=== PATIENT | female | born 1975 | race Caucasian/White ===

== ENCOUNTER 2020-05-26 12:08 | Outpatient (CLI) | payer OTHER, SELFPAY ==
--- NOTE | ~2020-05-26 | MMUS_ITS ---
EXAMINATION: MM diagnostic chelsea BI w floyd, US breast RT limited HISTORY: Palpable right breast abnormality at 3:00. TECHNIQUE: Additional 3-D tomosynthesis images of the breasts were performed and synthetic 2-D images were generated. CAD analysis was submitted and interpreted. High resolution right breast ultrasound was performed. COMPARISON: None FINDINGS: MAMMOGRAPHIC FINDINGS: Breast composed of scattered areas of fibroglandular density. There are subtle nodular densities in t he upper outer quadrant of the right breast which are obscured by fibroglandular tissue. The left johann ast is unremarkable without evidence for malignancy. ULTRASOUND: Right breast ultrasound: There is an enlarged lymph node at 11:00, 11 cm from the nipple with residual fatty hilum measuring 2 .8 cm maximum dimension. There is a 7 mm cyst at 8:00, 8 cm from the nipple. No discrete abnormality is identified at 3:00 in the area of palpable concern. IMPRESSION: 1. No evidence for malignancy in either breast. Benign findings. 2. Routine yearly screening mammogram and regular clinical breast examination are recommended. BI-RADS Category 2: Benign finding(s). Reviewed, dictated and finalized at location A. IMPRESSION: 1. No evidence for malignancy in either breast. Benign findings. 2. Routine yearly screening mammogram and regular clinical breast examination a re recommended. BI-RADS Category 2: Benign finding(s).
== END 2020-05-26 12:09 | disposition home or self-care (01) ==
LOC: ANHIMG 12:13
PROVIDERS: PCP Family Medicine Sports Medicine; Visit Provider Nurse Practitioner
DX: N64.4 Mastodynia (principal)
CPT/HCPCS: 76642; 77062; 77066; G0279

== ENCOUNTER 2020-08-23 10:54 | Outpatient (CLI) | payer OTHER, SELFPAY ==
[2020-08-23 11:21] LABS: Basophils Percent Auto 0.4 % (0.2-1.2); Eosinophils Absolute Auto 0.3 K/mm3 (0-0.3); Eosinophils Percent Auto 3.3 % (0-4.4); Hematocrit 40.3 % (37.0-47.0); Hemoglobin 13.6 g/dL (12.0-15.0); Immature Granulocyte Absolute 0.03 K/mm3 (0.00-0.031); Immature Granulocyte Percent A 0.3 % (0-0.5); Lymphocytes Absolute Auto 2.72 K/mm3 (0.9-3.2); Lymphocytes Percent Auto 26.6 % (18.3-44.2); Mean Corpuscular HGB Conc 33.7 g/dl (32-36); Mean Corpuscular Volume 88.8 fl (80-100); Mean Platelet Volume 9.8 fl (7.4-10.4); Monocytes Absolute Auto 0.7 K/mm3 (0.1-0.6); Monocytes Percent Auto 6.4 % (2.6-8.5); Neutrophils Absolute Auto 6.5 K/mm3 (1.3-6.7); Platelet Count Result 330 k/mm3 (150-375); Red Blood Count 4.54 M/mm3 (4.2-5.4); Red Cell Distribution Width 13.7 % (11.5-14.5); White Blood Count 10.2 K/mm3 (4.5-10.0)
[2020-08-23 11:33] LABS: Anion Gap 7 mmol/L (8-16); Blood Urea Nitrogen 10 mg/dL (7-17); Calcium 8.7 mg/dL (8.4-10.2); Carbon Dioxide 25 mmol/L (22-30); Chloride 107 mmol/L (98-107); Cholesterol 199 mg/dL (0-200); Estimated Glomerular Filt Rate > 60; Glucose 105 mg/dL (65-105); HDL Direct 48 mg/dL; Potassium 3.8 mmol/L (3.4-5.0); Sodium 139 mmol/L (137-145); Triglycerides 285 mg/dL (<150)
[2020-08-23 11:44] LABS: LDL Cholesterol Direct 112 mg/dL
== END 2020-08-23 10:55 | disposition home or self-care (01) ==
PROVIDERS: PCP Family Medicine; Visit Provider Nurse Practitioner Family
DX: B99.9 Unspecified infectious disease (principal); Z13.220 Encounter for screening for lipoid disorders; Z13.29 Encounter for screening for other suspected endocrine disorder; Z13.1 Encounter for screening for diabetes mellitus
CPT/HCPCS: 36415; 80048; 80061; 84443; 85025

== ENCOUNTER 2025-07-14 15:22 | Outpatient (CLI) | payer OTHER, SELFPAY ==
--- OUTSIDE RECORDS SUMMARY | 2025-07-14 15:50 | XMS_ITS | Clinical Summary ---
Author Organization [facility] Address [address] [place] [address] Care Team Providers Care Baseball Inspector And Repairer Name Role Phone Thierno Shabazz MD Primary Care Provider [phone] Source Comments [facility],non-owned Affiliates and Associated Physician Practices is amultiple site organization consisting of ambulatory clinics and hospital sitesin [place], [place], [place] and [place]. This disclosure is being madepursuant to the Care Everywhere program and may not contain all information available regarding this patient. Last updated 18.[facility] Allergies No known active allergies Medications * Be aware that medications may not be up to date on this document. Alwaysverify current medications with the patient. Cetirizine HCl (ZYRTEC PO) Active Fluticasone-Salm eterol (ADVAIR HFA IN) Active norgestimate-eth inyl estradiol (MONONESSA) 0.25-35 MG-MCG tablet Take 1 Tab by mouth once daily Active montelukast (SINGULAIR) 10 MG tablet Take 10 mg by mouth at bedtime Active benzonatate (TESSALON) 200 MG capsuleIndicatio ns:Acute upper respiratory infection Take 1 Cap by mouth 3 times daily as needed for Cough 30 Cap 05/14/2017 Active Social History Tobacco Use Types Packs/Day Years Used Date Smoking Tobacco: Never Assessed Comments Unknown Sex and Gender Information Value Date Recorded Sex Assigned at Not on file Legal Sex Female 8:06 AM CDT Gender Identity Not on file Sexual Orientation Not on file Last Filed Vital Signs Vital Sign Reading Time Taken Comments Blood Pressure 110/72 05/14/2017 8:23 AM CDT Pulse 81 05/14/2017 8:23 AM CDT Temperature 37.1 C (98.8 F) 05/14/2017 8:23 AM CDT Respiratory Rate 16 05/14/2017 8:23 AM CDT Oxygen Saturation - - Inhaled Oxygen Concentration - - Weight 83.9 kg (185 lb) 05/14/2017 8:23 AM CDT Height 165.1 cm (5' 5) 05/14/2017 8:23 AM CDT Body Mass Index 30.79 05/14/2017 8:23 AM CDT Plan of Treatment Health Maintenance Due Date Last Done Comments COLOGUARD (AGES 45-75) - COL ON CA SCREENING 1977 COLON MONITORING 1977 COLONOSCOPY - COLON CA SCREENING 1977 CT COLONOGRAPHY - COLON CA SCREENING 1977 Colorectal Cancer Screening 1977 FIT - COLON CA SCREENING 1977 FLEX SIG - COLON CA SCREENING 1977 LIPID TESTING 1975 MAMMOGRAM 1977 HIV SCREENING 1992 HEPATITIS C SCREENING 05/28/1995 DTAP/TDAP/TD VACCINES (1 - Tdap) 1996 HEPATITIS B VACCINE (1 of 3 - 19+ 3-dose series) 1996 COVID-19 VACCINE (1 - 2023-2 5 season) 2024 DEPRESSION SCREENING 11/25/2024 INFLUENZA VACCINE (#1) 2025 ZOSTER VACCINE (1 of 2) 2027 HIB VACCINE Aged Out No longer eligi ble based on patient's age to complete this topic HPV VACCINE Aged Out No longer eligi ble based on patient's age to complete this topic MENINGOCOCCAL (Group B) VACC INE SHARED DECISION-MAKING Aged Out No longer eligibl e based on patient's age to complete this topic MENINGOCOCCAL GROUPS A/C/Y/W VACCINE Aged Out No longer eligible b ased on patient's age to complete this topic PNEUMOCOCCAL VACCINE Aged Out No long er eligible based on patient's age to complete this topic Care Teams Baseball Inspector And Repairer Relationship Specialty Start Date End Date Thierno Shabazz MD [address] [place] [address] PCP - General Family Medicine 05/14/17
--- OUTSIDE RECORDS SUMMARY | 2025-07-14 15:50 | XMS_ITS | Encounter Summary ---
Author Organization [facility] Address [address] [place] [address] Care Team Providers Care Driver Service Technician Name Role Phone Unknown, Notinfile Primary Care Provider Unavail able Encounter Details Date Type Department Care Team (Late st Contact Info) Description 06/11/2025 Results Follow-Up [facility] Convenient Care at [address] [address] Gail Nath NP [address] [place] [address] [address] [place] [address] XR Knee Left 4 or More Views Social History Tobacco Use Types Packs/Day Years Used Date Smoking Tobacco: Some Days Cigarettes Smokeless Tobacco: Never AUDIT-C Answer Date Recorded Q1: How often do you have a drink containing alc ohol? Monthly or less 08/06/2023 Average Number of Drinks Not on file 023 Frequency of Binge Drinking Not on file 07/26 Personal Safety Answer Date Recorded Have you ever been in or are you currently in a harmful physical or emotional relationship or is someone making you feel afraid or unsafe? Denies 04/03/2025 Comments No Sex and Gender Information Value Date Recorded Sex Assigned at Not on file Legal Sex Female 2:48 AM WEED BURNER Gender Identity Not on file Sexual Orientation Not on file Occupation Industry Job Start Date Job End Date [employer] Not on file Not on file Not on file documented as of this encounter Plan of Treatment Not on file documented as of this encounter Visit Diagnoses Not on filedocumented in this encounter Care Teams Driver Service Technician Relationship Specialty Start Date End Date Unknown, Notinfile PCP - General 06/11/25 documented as of this encounter
--- OUTSIDE RECORDS SUMMARY | 2025-07-14 15:50 | XMS_ITS | Clinical Summary ---
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 Name Role Phone Unknown, Notinfile Primary Care Provider Unavail able Allergies No known active allergies Medications albuterol HFA (PROVENTIL HFA,VENTOLIN HFA,PROAIR HFA) 90 mcg/actuation inhaler INHALE 2 PUFFS BY MOUTH EVERY 4 HOURS NEEDED FOR SHORTNESS OF BREATH OR WHEEZING 1 Active ALPRAZolam (XANAX) 1 mg tablet Take 1 tablet (1 mg total) by mouth daily as needed 1 Active Wixela Inhub 100-50 mcg/dose diskus inhaler 1 puff 2 (two) times a day 1 Active ibuprofen (ADVIL,MOTRIN) 800 mg tablet Take 1 tablet (800 mg total) by mouth every 6 (six) hours as needed for pain Active escitalopram (LEXAPRO) 20 mg tablet Take 0.5 tablets (10 mg total) by mouth daily 4 Active montelukast (SINGULAIR) 10 mg tablet Take 1 tablet (10 mg total) by mouth nightly Active norethindrone-e .estradioL-iron (LOESTIN 24 FE) 1 mg-20 mcg (24)/75 mg (4) per tablet Take 1 tablet by mouth daily Active fluticasone propionate (FLONASE) 50 mcg/actuation nasal spray Administer 1 spray into each nostril daily as needed for rhinitis Active dextromethorpha n-bupropion (Auvelity) 45-105 mg tablet, IR & ER, biphasic 1 tablet daily Ac tive hydrOXYzine (ATARAX) 25 mg tablet Take 1 tablet (25 mg total) by mouth 2 (two) times a day Active norethindrone-e .estradioL-iron (Blisovi Fe 12/14, ,) 1 mg-20 mcg (21)/75 mg (7) per tablet Take 1 tablet by mouth daily Active Active Problems Problem Noted Date Diagnosed Date Toxic effect of acetaminophe n, intentional self-harm, initial encounter 04/03/2025 Assessment & Plan (04/03/2025 4:18 PM CDT): Diphenhydramine overdose Xanax overdose Patient presenting with suicide attempt by ingesting 2 bottles of Tylenol PM, 7 pills of 25 mg hydroxyzine, 3 pills of Xanax, and alcohol at 2100 on 04/02/2025. Acetaminophen level at 2300 was elevated at 108. Poison control recommended starting antidote if Tylenol level elevated. If not, then repeat level in 4 hours. - AST 16, ALT 16, Alk phos 89. VBG 7.40/39/80/24. PT 11.8, INR 1.09. - Salicylates negative, ethanol negative, UDS positive for benzodiazepines and cannabinoids -NAC 150 mg/kg bolus followed by 12.5 mg/kg/hr was given. Acetaminophen was downtrending to 56 at 4 hrs and 6 at 10 hrs. NAC was discontinued Criteria for stopping NAC: -Acetaminophen level <10 mcg/mL -INR <2.0 -Normal ALT/AST or 25-50% decrease from peak level Plan: -For diphenhydramine, monitor for drowsiness, hypertension, prolonged QTC, seizures, anticholinergic responses. - Criteria met for discontinuing NAC -Clinically well appearing Intentional diphenhydramine overdose 04/03/2025 Xanax overdose 04/03/2025 Hypokalemia 04/03/2025 Assessment & Plan (04/03/2025 4:19 PM CDT): Potassium level low, 3.1 - Replacing with 40 mEq of KCl oral Leukocytosis 04/03/2025 Assessment & Plan (04/03/2025 4:20 PM CDT): Likely reactive. No signs or symptoms of infection noted. -Recheck CBC Suicide attempt 04/03/2025 Assessment & Plan (04/03/2025 4:24 PM CDT): First suicidal attempt by ingestion. Positive prior history of suicidal ideation. No previous psychiatric hospitalization. This may be contributed by recent medication changes. Patient reported not being able to take bupropion consistently. She was switched to auvelity (dextromethorphan-bupropion) but due to insurance issues, was unable to fill the prescription for nearly 4 weeks. - Patient is agreeable to voluntary psychiatric hospitalization Plan: -[facility] consult - Psychiatry consult to restart psychiatric medication - Voluntary psychiatric hospitalization -Suicide precautions Anxiety and depression 04/03/2025 Assessment & Plan (04/03/2025 4:26 PM CDT): Panic disorder Prior history of depression, anxiety, and panic disorder. Home medications include escitalopram 10 mg, dextromethorphan-bupropion, p.r.n. hydroxyzine and Xanax. Recent changes in these medications. Plan: -Will defer to psychiatry for medication management Panic disorder 04/03/2025 Chronic constipation 08/06/2023 Chest wall muscle strain, initial encounter 01/24 Muscle spasm 02/20/2023 Bilateral hearing loss 01/30/2021 Assessment & Plan (01/31/2021 8:00 PM AUTOMATION CONTROL TECHNICIAN): Hearing test - call with results Dental caries 01/30/2021 Assessment & Plan (01/31/2021 7:59 PM AUTOMATION CONTROL TECHNICIAN): Doxycycline for dental infection, follow up with Dentist at the end of the antibiotics Referred otalgia of both ears 01/30/2021 Assessment & Plan (01/31/2021 8:00 PM AUTOMATION CONTROL TECHNICIAN): Doxycycline for dental infection, follow up with Dentist at the end of the antibiotics Encounters Date Type Department Care Team Description 06/11/2025 12:00 PM CDT Office Visit [facility] at [address] [phone] Gail Nath NP Posterior left knee pain (Primary Dx) 06/11/2025 11:40 AM CDT Ancillary Procedure [facility] Imaging at [address] [phone] Posterior right knee pain 06/11/2025 Results Follow-Up [facility] at [address] [phone] Gail Nath NP XR Knee Left 4 or More Views from Last 3 Months Immunizations Immunization Administration Dates Next Due Tdap 09/12/2022 Surgical History Surgery Date Site/Laterality Comments HERNIA REPAIR 11/25/2015 - 11/24/2016 TONSILLECTOMY 11/25/1981 - 11/24/1982 Medical History Medical History Date Comments Anxiety Depression Scoliosis Degenerative disc disease, lumbar Migraines Seasonal allergies Family History Medical History Relation Name Comments Suicide Completion Father Marybeth-Danlos syndrome Father's Sister Asthma Maternal Grandmother Breast cancer Maternal Grandmother Diabetes Maternal Grandmother COPD Mother Heart failure Mother Hypertension Mother Marybeth-Danlos syndrome Paternal Grandfather Marybeth-Danlos syndrome Paternal cousin 1 Marybeth-Danlos syndrome Paternal cousin 2 Relation Name Status Comments Father Father's Sister Maternal Grandfather Maternal Grandmother Mother Paternal Grandfather Paternal Grandmother Paternal cousin 1 Paternal cousin 2 Social History Tobacco Use Types Packs/Day Years Used Date Smoking Tobacco: Some Days Cigarettes Smokeless Tobacco: Never Tobacco Cessation:Ready to Q uit: Not Asked; Counseling Given: Not Answered AUDIT-C Answer Date Recorded Q1: How often [...] on file Legal Sex Female 2:48 AM AUTOMATION CONTROL TECHNICIAN Gender Identity Not on file Sexual Orientation Not on file Occupation Industry Job Start Date Job End Date [employer] Not on file Not on file Not on file Obstetrics History Para Term AB IAB SAB Ectopic Multiple Livin g Live Births 1 1 1 1 1 Date Outcome GA Total Labor Labor/2nd/3rd Weight Sex Type Anes PTL Elida A1 A5 Name Clin 05/11 Term 38w 4d 3.771 kg (8 lb 5 oz) M Vaginal Living Complications:None Last Filed Vital Signs Vital Sign Reading Time Taken Comments Blood Pressure 143/90 06/11/2025 11:24 AM CDT Pulse 68 06/11/2025 11:24 AM CDT Temperature 36.7 C (98 F) 06/11/2025 11:24 AM CDT Respiratory Rate 18 06/11/2025 11:2 4 AM CDT Oxygen Saturation 98% 06/11/2025 11: 24 AM CDT Inhaled Oxygen Concentration - - Weight 104.8 kg (231 lb 1.6 oz) 025 11:24 AM CDT Height 165.1 cm (5' 5) 06/11/2025 11:2 4 AM CDT Body Mass Index 38.46 06/11/2025 11:24 AM CDT Plan of Treatment Health Maintenance Due Date Last Done Comments Colon Cancer Screening-Colonoscopy 1977 Depression Screening 1977 Hepatitis C Screening 1977 Hepatitis B Screening 1995 Pneumococcal vaccine <65 (1 of 2 - PCV) 1996 Covid-19 Vaccine ( season) 2024 09/06/2021, 12/02/2020, 11/11/2020 Breast Cancer Screening-Mammogram 09/25/2024 023 Cervical Cancer Screening 09/25/2024 09/25/2023, 11/2022 Regular Well Visit/Exam 18-64 09/25/2024 09/25/2023 Influenza Vaccine (#1) 2025 DTaP/Tdap/Td Vaccine (4 - Td or Tdap) 09/12/2032 09/12/2022, 03/01/2016, 08/26/2007 Procedures Procedure Name Priority Date/Time Associated Diagnosis Comments XR KNEE LEFT 4 OR MORE VIEWS Schedule NICOLE, Read NICOLE (Appt Today, Awaiting Results) 06/11/2025 11:46 AM CDT Posterior right knee pain SCREENING MAMMOGRAM BILATERAL W VERITO Schedule Routine, Read Routine (OP Routine) 09/25/2023 12:05 PM CDT Encounter for screening mammogram for malignant neoplasm of breast HIGH RISK HPV DNA DETECTION WITH GENOTYPING Routine 09/25/2023 11:33 AM CDT Screening for malignant neoplasm of cervix from Last 3 Months or Most Recently Relevant to Health Maintenance Results * XR Knee Left 4 or More Views (06/11/2025 11:46 AM CDT) Anatomical Region Laterality Modality Lower Extremities, Knee Left Digital Radiography 06/11/2025 1:26 PM CDT Narrative 06/11/2025 1:26 PM CDT EXAM DESCRIPTION: XR KNEE LEFT 4 OR MORE VIEWS REASON FOR STUDY: Knee pain, initial exam, posterior left, anterior medial Pt complains of generalized knee pain after her knee locked up and twisted on the may. TECHNIQUE: There are 4 radiographic view(s) of the left knee . COMPARISON: No prior FINDINGS: Normal mineralization. No acute fracture or dislocation. Mild joint space narrowing medial compartment. Trivial osteophyte formation superior posterior patella. Mild joint effusion. IMPRESSION: 1. No acute fracture. 2. Mild osteoarthritis medial compartment and trivial of the patellofemoral joint. 3. Mild joint effusion. THIS IS AN ELECTRONICALLY VERIFIED FINAL REPORT 06/11/2025 1:26 PM - Electronically signed by Hero Frankel M.D. MJ T: Report ID: [id number] Reading Location: [id number] Procedure Note Hero Frankel MD - 06/11/2025 EXAM DESCRIPTION: XR KNEE LEFT 4 OR MORE VIEWS REASON FOR STUDY: Knee pain, initial exam, posterior left, anterior medial Pt complains of generalized knee pain after her knee locked up and twistedon the may. TECHNIQUE: There are 4 radiographic view(s) of the left knee . COMPARISON: No prior FINDINGS: Normal mineralization. No acute fracture or dislocation. Mild joint space narrowing medial compartment. Trivial osteophyte formation superior posterior patella. Mild joint effusion. IMPRESSION: 1. No acute fracture. 2. Mild osteoarthritis medial compartment and trivial of thepatellofemoral joint. 3. Mild joint effusion. THIS IS AN ELECTRONICALLY VERIFIED FINAL REPORT 06/11/2025 1:26 PM - Electronically signed by Hero Frankel M.D. MJ T: Report ID: [id number] Reading Location: [place] [id number] Gail Nath NP IMG XR PROCEDURES Final Re sult * Screening Mammogram Bilateral W Verito (09/25/2023 12:05 PM CDT) Anatomical Region Laterality Modality Breast Bilateral Mammography Narrative 10/03/2023 5:20 PM AUTOMATION CONTROL TECHNICIAN BILATERAL DIGITAL MAMMOGRAPHY with tomography The present examination has been compared to prior imaging study dated 05/26/2020. Mammography Findings CAD (computer-aided detection) software was utilized. The breasts are heterogeneously dense. This may lower the sensitivity of mammography. No masses, significant calcifications or other abnormalities are seen. Impression There is no mammographic evidence of malignancy. Screening mammogram in 1 year is recommended. BI-RADS Category 1: Negative PATIENT LETTER SENT Gay Gonzalez DO IMG MAMMO PROCEDURES Fi nal Result * (ABNORMAL) High Risk HPV DNA Detection with Genotyping (Molecular component) (09/25/2023 11:33 AM CDT) HPV HR 16 Not Detected Not Detected KANE Comment:Testing performed by : [facility], [address] [facility] [place]., [address] HPV HR 18 Not Detected Not Detected KANE Comment:Testing performed by : [facility], [address] [facility] [place]., [address] HPV HR Non 16/18 Detected(A) Not Detected KANE Comment: Interpretive Data Nucleic acid amplification for detection of high-risk Human Papilloma virus (HPV) is performed by the Maria G Mary 6800 HPV test. This assay specifically detects HPV-16 and HPV-18 genotypes. The following HPV genotypes are detected as high-risk HPV: HPV-31, 33, 35, ,39, 45, 51, 52, 56, 58, 59, 66, and 68. This assay has been approved by the [place] Food and Drug Administration for detection of HPV in cervical specimens collected by a physician using an endocervical brush/spatula or cervical broom and placed in the ThinPrep Pap Test PreservCyt collection containers. The performance characteristics of this test have been verified by the [facility] Molecular Infectious Disease laboratory. Correlate with separately reported cytology results, as applicable. Interpretive data last revised 23 Testing performed by: [facility], [address] [place]., [address] Endocervical 09/25/2023 11:3 3 AM CDT 09/26/2023 12:38 PM CDT [facility] KANE SCANLON - 09/27/2023 5:23 AM CDT Clinical history and diagnosis->Liquid-based PAP test with high risk HPV test- Z12.4 Number of vials->1 Testing type->Screening Last menstrual period (date if known)->09/15/23 Gay Gonzalez DO LAB BODY FLUIDS AND STO OLS ORDERABLES Final Result Performing Organization Address City/State/[facility] Co de Phone Number [facility] [address] [address] Department of Laboratories [place], [place] [id number] from Last 3 Months or Most Recently Relevant to Health Maintenance Insurance [facility] IDPA IDPA [facility] Advance Directives For more information, please contact: [phone] * Full Code (Latest Code Status on File) Date Activated Date Inactivated Comments 04/03/2025 6:31 PM 04/03/2025 11:17 PM Care Teams Crimping Machine Operator Relationship Specialty Start Date End Date Unknown, Notinfile PCP - General 06/11/25
[2025-07-14 16:40] LABS: Thyroid Stimulating Hormone Reflex 1.240 uIU/mL (0.465-4.68)
[2025-07-15 07:09] LABS: FSH 8.7 mIU/mL (.)
[2025-07-20 23:07] LABS: Estradiol, Sensitive 276.3 pg/mL (.)
== END 2025-07-14 15:23 | disposition home or self-care (01) ==
PROVIDERS: PCP Nurse Practitioner Family; Visit Provider Student in an Organized Health Care Education/Training Program
DX: N95.1 Menopausal and female climacteric states (principal)
CPT/HCPCS: 36415; 82670; 83001; 84443

== ENCOUNTER 2025-09-30 18:25 | Emergency (ER) | payer OTHER, SELFPAY ==
--- OUTSIDE RECORDS SUMMARY | 2016-07-23 07:00 | XMS_ITS | Continuity of Care Document ---
Author Organization [facility] Address [address] [place] [address] Phone Care Team Providers Care Regional Agronomist Name Role Phone Sacha Michel MD Unavailable Unavailable Allergies, Adverse Reactions, Alerts Substance Reaction Status Criticality No Known Allergies Active No Inform ation Medications Medication Instructions Dosage Effective Dates (start - stop) Status Comments SINGULAIR (unknown strength) Not Available - Active Advair Diskus 100 mcg-50 mcg/dose powder for inhalation inhale 1 puff by inhalation route 2 times every day in the morning and evening approximately 12 hours apart 1.00 puff - Active Control BUCCAL CAP DS PK - Active Procedures Procedure Date SCODI, Retina Office/outpatient Visit, [facility] Advance Directives Directive Yes / No Effective Date File Name No Information Encounters Encounter Description Practice Location Reason(s) For Visit Diagnoses Date Provider Providers Copied on Encounter Office/outpat ient Visit, [facility], [address], [place], [place], [id number], [place] tel:[phone] [address] [place] Professional Blurry vision OS (chief complaint) Central serous chorioreti nopathy, left 6 Marilu Goncalves. [address] [facility], [address], [place], [place], [address], [place]. tel:[phone] Family History Family Member Type Diagnosis Age At Onset Problem (finding) Family history of Diabe nataliya mellitus Problem (finding) Family history of glauc alton Payers Payer name Insurance type Covered republican ID Authoriza timeli(s) [facility] [id number] Social History Type Description Quantity Date Captured Comments Alcohol Use Details Unknown Caffeine Use Details Unknown Tobacco Use Status No Information Smoking Status No Information Sex Female Chief Complaint And Reason For Visit From encounter dated '07/23/2016 13:00'. Blurry vision OS (chief complaint). Description: The 41 year old female presents for Blurry vision OS. Pt states last week she noticed a sharp pain in the nasally along with blurred vision and distortion. Pt states on Saturday she noticed her depth perception seemed off because she was parking crooked as well as when walking, she would bump into things. Pt reports the pain has since moved to the rest of OS. She reports to using a cold compress and resting OS. She states her last eye exam was 2+ years ago. Pt denies flashes, reports occasional floaters. Reason For Referral Reason For Referral No Information History Of Present Illness Encounter Date Complaint History Of Prese nt Illness Blurry vision OS The 41 year old female presents for Blurry vision OS. Pt states last week she noticed a sharp pain in the nasally along with blurred vision and distortion. Pt states on Saturday she noticed her depth perception seemed off because she was parking crooked as well as when walking, she would bump into things. Pt reports the pain has since moved to the rest of OS. She reports to using a cold compress and resting OS. She states her last eye exam was 2+ years ago. Pt denies flashes, reports occasional floaters. Functional Status Date Functional Assessmen t No Information Instructions Date Instruction Additional Infor kimmie Impression/Plan - Di scussed diagnosis in detail with patient. Patient understands will resolve on it's own. OCT mac performed today. Will continue to monitor. Amsler grid normal in both eyes, patient reports no diplopia. Patient states she has bumped into the wall a few times. Pt states vision disturbances are worse in sunlight. Patient states when OD is closed vision still looks distorted. Patient aware she has risk factors for pigmentary glaucoma. Instructed patient to return to clinic if distortion continues for additional testing or with any new problems. Jun- Central serous chori oretinopathy, left - Educational material given Related to Central serous chorioretinopathy, left Follow up - as needed Assessments Type Assessment Date assessment Central serous chorioretinopathy , left Patient Care Teams Name Effective Dates (start - stop) Status Members No Information
--- OUTSIDE RECORDS SUMMARY | 2016-07-23 07:00 | XMS_ITS | Continuity of Care Document ---
Author Organization [facility] Address [address] [place] [address] Phone Care Team Providers Care Blow Molder Name Role Phone Sacha Michel MD Unavailable [...] Procedures Procedure Date SCODI, Retina Office/outpatient Visit, [facility] Advance Directives Directive Yes / No Effective Date File Name No Information Encounters Encounter Description Practice Location Reason(s) For Visit Diagnoses Date Provider Providers Copied on Encounter Office/outpat ient Visit, [facility], [address], [place], [place], [id number], [place] tel:[phone] [address] [place] Professional Blurry vision OS (chief complaint) Central serous chorioreti nopathy, left 6 Marilu Goncalves. [address] [facility], [address], [place], [place], [id number], [place]. tel:[phone] Family History Family Member Type Diagnosis Age At Onset Problem (finding) Family history of Diabe nataliya mellitus Problem (finding) Family history of glauc alton Payers Payer name Insurance type Covered green party ID Authoriza timeli(s) [facility] [id number] Social History Type Description Quantity Date Captured [...]
--- OUTSIDE RECORDS SUMMARY | 2025-03-01 10:00 | XMS_ITS ---
Author Organization [facility] [facility] Address [facility] [place] [address] Care Team Providers Care Corporate Lawyer Name Role Phone Alec BETANCOURT, Martir Primary Care Provider Dion Meraz Unavailable [phone] REASON FOR VISIT Follow Up Social History Sex Assigned At : Social History Observation Description Sex Assigned At Female Encounters Encounter Location Date Provider Diagnosis [facility] I Do Venues [place] [id number] [facility] [address] [place] [address] 03/01/2025 Dion Pendleton Plan Of Treatment No Information Progress Notes * ALKAROLDOB: [birth year] (50 yo F)Acc No.[id number]:03/01/2025 Patient: KAROL BENNETT Provider: JAVY MEDINA :1975 A ge:49 Y S ex:Female Date:03/01/2025 [facility] Pcp:Martir Michael MD Subjective: * Chief Complaints: * F ollow Up Billing Information: * Procedure Codes: * Electronic signature of JAVY Hebert on 09/30/2025 at 09:14 PM FRAUD PREVENTION ANALYST Sign off status: Pending * Provider: JAVY MEDINA Date: 0 03/01/2025 Generated for Printi ng/Faxing/eTransmitting on: 1 11/30/2024 09:14 PM FRAUD PREVENTION ANALYST
--- OUTSIDE RECORDS SUMMARY | 2025-07-02 07:45 | XMS_ITS ---
Author Organization [facility] [employer] [facility] Address [address] [place] [address] Care Team Providers Care Orthopedic Technician Name Role Phone Alec BETANCOURT, Martir Primary Care Provider UnavailDion Cronin Unavailable [phone] Kip Whitaker Unavailable [phone] REASON FOR VISIT New Patient (Last seen by Dion on 04/18/2025) Medications Medication SIG (Take, Route, Frequency, Duration) Notes Start Date End Date Status Propranolol HCl 10 MG Tablet 1 tablet Orally twice a day; Duration: 90 days 04/22/2025 Unknown Escitalopram Oxalate 5 MG Tablet 1 tablet Orally Once a day; Duration: 14 days 06/29/2025 Unknown Naproxen 500 MG Tablet Oral 04/10/2024 Unknown Pantoprazole Sodium 40 MG Tablet Delayed Release Oral 04/10/2024 Unknown BLISOVI FE 1 mg-20 mcg (21)/75 mg (7) Tablet Oral *Reorder from [facility] for eRx and Interaction Alerts* 04/10/2024 Unknown Escitalopram Oxalate 10 MG Tablet 0.5 tablet Oral Once a day; Duration: 7 days Unknown hydrOXYzine HCl 25 MG Tablet Oral 04/10/2024 Unknown Montelukast Sodium 10 MG Tablet Oral 04/10/2024 Unknown Auvelity 45-105 MG Tablet Extended Release 1 tablet Orally twice a day; Duration: 90 days Unknown ProAir HFA 108 (90 Base) MCG/ACT Aerosol Solution Inhalation 04/10/2024 Unknown Escitalopram Oxalate 10 MG Tablet 1 tablet Orally Once a day; Duration: 30 days 06/29/2025 Unknown ALPRAZolam 1 MG Tablet 1 tablet Orally daily; Duration: 30 days As needed 04/27/2025 Unknown Social History Sex Assigned At : Social History Observation Description Sex Assigned At Female Social History Additional Details Category Social Info Options Details Migrated Social History Migrated Social History Alcohol Intake: Occasional 03/06/2024,Tobacco Years: Patient refused 03/06/2024 Vital Signs Height 64.00 in 07/02/2025 Height-cm 162.56 cm 07/02/2025 Encounters Encounter Location Date Provider Diagnosis [facility], [place] [address] [address] 07/02/2025 Kip Whitaker Plan Of Treatment No Information Progress Notes * ALKAROLDOB: [birth year] (50 yo F)Acc No.[id number]:07/02/2025 Patient: KAROL BENNETT Provider: BENITEZ CastroHNP :1975 A ge:50 Y S ex:Female Date:07/02/2025 Address:[address] [place], [place] [address] Pcp:Martir Michael MD Subjective: * Chief Complaints: * N ew Patient (Last seen by Dion on 04/18/2025) * Medical History: Problems: Generalized anxiety disorder Moderate recurrent major depression Panic disorder , Imported from Highlights: On April 02, 2025, the patient visited the emergency department at [facility], where they were seen by Dr. Mandi Akhtar. The patient presented with unspecified depression and had attempted suicide. This was also accompanied by a toxic effect due to intentional self-harm with acetaminophen. Following the emergency visit, the patient had a hospital encounter on April 03, 2025. The records do not specify the physician who attended to the patient during this hospital encounter. * Surgical History: Other 03/04/2016 * Social History: M igrated Social History: M igrated Social History: Alcohol Intake: Occasional 03/06/2024,Tobacco Years: Patient refused 03/06/2024. * Medications: U nknownEscitalopram Oxalate 10 MG Tablet 0.5 tablet Oral Once a day Auvelity 45- 105 MG Tablet Extended Release 1 tablet Orally twice a day ProAir HFA 108 (90 Base) MCG/ACT Aerosol Solution Inhalation hydrOXYzine HCl 25 MG Tablet Oral Montelukast Sodium 10 MG Tablet Oral BLISOVI FE 1 mg-20 mcg (21)/75 mg (7) Tablet Oral , Notes to Pharmacist: *Reorder from [facility] for eRx and Interaction Alerts*Naproxen 500 MG Tablet Oral Pantoprazole Sodium 40 MG Tablet Delayed Release Oral Propranolol HCl 10 MG Tablet 1 tablet Orally twice a day Escitalopram Oxalate 5 MG Tablet 1 tablet Orally Once a day Escitalopram Oxalate 10 MG Tablet 1 tablet Orally Once a day ALPRAZolam 1 MG Tablet 1 tablet Orally daily As neededUnknown Escitalopram Oxalate 10 MG Tablet 0.5 tablet Oral Once a day Unknown Auvelity 45-105 MG Tablet Extended Release 1 tablet Orally twice a day Unknown ProAir HFA 108 (90 Base) MCG/ACT Aerosol Solution Inhalation Unknown hydrOXYzine HCl 25 MG Tablet Oral Unknown Montelukast Sodium 10 MG Tablet Oral Unknown BLISOVI FE 1 mg-20 mcg (21)/75 mg (7) Tablet Oral , Notes to Pharmacist: *Reorder from [facility] for eRx and Interaction Alerts*Unknown Naproxen 500 MG Tablet Oral Unknown Pantoprazole Sodium 40 MG Tablet Delayed Release Oral Unknown Propranolol HCl 10 MG Tablet 1 tablet Orally twice a day Unknown Escitalopram Oxalate 5 MG Tablet 1 tablet Orally Once a day Unknown Escitalopram Oxalate 10 MG Tablet 1 tablet Orally Once a day Unknown ALPRAZolam 1 MG Tablet 1 tablet Orally daily As needed Objective: * Vitals: H t: 64.00 in, Ht-cm: 162.56 cm. Billing Information: * Procedure Codes: * Electronic signature of JAVY Sainz on 09/30/2025 at 09:14 PM BOAT CANVAS MAKER INSTALLER Sign off status: Pending * Provider: JAVY Castro Date: 0 07/02/2025 Generated for Hossein levi/Pily/Ruddy on: 11/30/2024 09:14 PM BOAT CANVAS MAKER INSTALLER
[2025-09-30 18:32] VITALS: BP 186/107; PULSE 79; RESP 18; TEMP 36.1; O2SAT 99
[2025-09-30] MEDS: cefTRIAXone 500 MG, LIDOCAINE 1% LOCAL INJ 1 ML IM (18:59)
--- NOTE | 2025-09-30 19:04 | ED.FEMALEGU ---
HPI - Female Genitourinary General Chief complaint: Urogenital-Female Stated complaint: STD Test Time Seen by Provider: 09/30/25 18:43 Source: patient and RN notes reviewed Mode of arrival: ambulatory Limitations: no limitations History of Present Illness HPI Narrative: 50-year-old female patient presents today requesting STI testing. States her significant other told her today that he is having penile discharge over the past few days. Patient denies any symptoms at this time, but would like to be tested. States she only has the one partner right now. Related Data Home Medications ?Medication ?Instructions ?Recorded ?Confirmed ?Last Taken ?Type alprazolam 1 mg tablet 1 mg PO TID PRN 07/25/20 08/26/25 Unknown History cetirizine 10 mg tablet (Zyrtec) 10 mg PO DAILY 07/25/20 08/26/25 Unknown History escitalopram oxalate 10 mg tablet 20 mg PO 07/14/25 08/26/25 Unknown History escitalopram oxalate 20 mg tablet mg 09/30/25 Unknown History Allergies Allergy/AdvReac Type Severity Reaction Status Date / Time kiwi Allergy Mild MOUTH Verified 09/30/25 18:26 ITCHING, ABD PAIN PMFSH Past Medical History Medical History History of scoliosis BMI 40.0-44.9, adult Encounter for other specified surgical aftercare Periumbilical abdominal pain Ventral hernia without obstruction or gangrene Surgical History Surgical History Hx of tonsillectomy H/O hernia repair Family History Family History Father Family history of suicide, Onset Age: 38 Mother Hypertension Family history of chronic obstructive pulmonary disease Family history of congestive heart failure Sibling No problems noted. Grandparent Breast cancer Other Diabetes mellitus Family history of cardiovascular disease Family history of malignant neoplasm Social History Social History Second hand tobacco smoke exposure: No Smoking end date: 11/25/11 Alcohol intake: current Substance use: never Substance use type: does not use Living arrangements: with family Occupation/Education: unemployed Gender identity (if verbalized by the patient): Female Sexual Orientation (if Verbalized by the Patient): Straight or Heterosexual Comments At time of signature, I have reviewed and agree with nursing past medical, surgical, social and family history unless otherwise noted. Please see nursing chart for further information. There is no relevant family history pertinent to the presenting complaint Exam Narrative: GENERAL: Well-appearing, well-nourished, tearful. HEAD: Normocephalic, atraumatic. EYES: EOMI. No redness or drainage. Conjunctivae normal. ENT: Mucous membranes pink and moist. NECK: Normal AROM. CHEST: No respiratory distress. EXTREMITIES: Normal range of motion. No edema. SKIN: Warm, dry, no rash. Capillary refill normal. Normal skin turgor. NEURO: No focal deficits. Alert and oriented x3. Gait steady. PSYCH: Normal affect. No signs of depression or anxiety. Course Course Level of Care: Express Care Visit Vital Signs Vital signs: Vital Signs Temperature 97.0 F L 09/30/25 18:32 Pulse Rate 79 09/30/25 18:32 Respiratory Rate 18 09/30/25 18:32 Blood Pressure 186/107 H 09/30/25 18:32 Pulse Oximetry 99 09/30/25 18:32 Oxygen Delivery Room Air 09/30/25 18:32 Temperature 97.0 F L 09/30/25 18:32 Pulse Rate 79 09/30/25 18:32 Respiratory Rate 18 09/30/25 18:32 Blood Pressure 149/92 H 09/30/25 19:11 Pulse Oximetry 99 09/30/25 18:32 Oxygen Delivery Room Air 09/30/25 18:32 Reviewed. Recheck of blood pressure is 149/92. MDM - Female Genitourinary MDM Narrative Medical decision making narrative: 50-year-old female patient presents today requesting STI testing. States her significant other told her today that he is having penile discharge over the past few days. Patient denies any symptoms at this time, but would like to be tested. States she only has the one partner right now. Physical exam normal. VSS. Recommend patient have a more comprehensive set of testing, states she will go to her OB for follow up. Prescription for doxycycline and flagyl sent to pharmacy. Patient received IM dose of Rocephin to cover for gonorrhea. Patient agrees with plan. Anticipatory guidance given. Differential Diagnosis Differential diagnosis: Likely other (Gonorrhea, chlamydia, Trichomonas) Critical Care Time Critical Care Time Critical Care Time: No Discharge Plan Discharge Clinical Impression: Encounter for screening examination for sexually transmitted disease Patient Disposition: Home Condition: Stable Instructions: Antibiotic Form, Chlamydia (ED), Gonorrhea (ED) Additional Instructions: Your urine sample has been sent off to test for gonorrhea, chlamydia, and trichomonas infections. These tests can take 24-48 hours to come back. You will be notified by telephone if any of your results. You have been treated with Rocephin in urgent care today to cover you for gonorrhea. Prescriptions for Flagyl and doxycycline have been sent to your pharmacy to cover you for trichomonas and chlamydia. If any of your tests come back positive you should need no further treatment. If any of your test come back positive, you will need to notify any partners that you have, and they will need to be tested and treated. Patient Language: Azeri Prescriptions: New doxycycline hyclate 100 mg tablet 100 mg PO BID 7 Days Qty: 14 0RF metronidazole 500 mg tablet 500 mg PO BID 7 Days Qty: 14 0RF No Action escitalopram oxalate 20 mg tablet alprazolam 1 mg tablet 1 mg PO TID PRN cetirizine [Zyrtec] 10 mg tablet 10 mg PO DAILY valacyclovir [Valtrex] 1 gram tablet 1,000 mg PO BID PRN (Reason: cold sores) Qty: 7 0RF escitalopram oxalate 10 mg tablet 20 mg PO levonorgestrel-ethinyl estrad 0.15 mg-30 mcg (91) tablets,dose pack,3 month 1 tablet PO DAILY Qty: 273 3RF fluticasone propion-salmeterol [Advair Diskus] 100-50 mcg/dose blister with device 1 inh INHALATION Q12H Qty: 180 2RF montelukast [Singulair] 10 mg tablet 10 mg PO DAILY Qty: 30 2RF Follow-up/Referrals: Ebony,Antoinette Ascencio APN [Primary Care Provider, Unknown] Stand Alone Forms: Work/School Release IP Time of Disposition: 18:57
[2025-09-30 19:11] VITALS: BP 149/92
--- OUTSIDE RECORDS SUMMARY | 2025-09-30 21:15 | XMS_ITS | Data Portability ---
Author Organization [facility] Address [address] [place] [address] Care Team Providers Care Medical Health Researcher Name Role Phone AMAYAANTOINETTE Primary Care Provider Assessment No assessment recorded. Plan of Treatment Reminders Order Date Submit Date Provider Last Modified By Organization Details Last Modified Time Details Appointments NEW PATIENT 60 2024 09:00A Aristeo Rosa NP Not available Not available Not available Lab respira tory allerge n panel - [facility] c 2024 025 [facility], [address] [facility] [address], [place], [address], 07/28/2025 10:36:53 food allerge n panel, serum 2024 025 [facility], [address] [facility], [facility], [place], [address], 07/28/2025 10:36:54 TSH, ultra-s ensitiv e, serum 2024 025 [facility], [address], [place], [address], 07/28/2025 10:36:52 CMP, serum or plasma 2024 025 [facility], [address], [place], [address], 07/28/2025 10:36:51 lipid panel, serum 2024 025 BINFORD [facility], [address], [place], [address], 07/28/2025 10:36:49 CBC 2024 025 [facility], [address], [place], [address], 07/28/2025 10:36:56 Referral dermato logist referra l 2024 025 oneyda Griffith MD (Dermatology) , [address] [address], [place], [address], 09/14/2025 10:05:45 psychia trist referra l 2024 025 [email or web address], [address], [place], [address], 07/29/2025 11:26:[address] referra l 2024 025 [facility], [address], [place], [address], 08/11/2025 09:29:52 Procedures None recorde d. Surgeries None recorde d. Imaging None recorde d. Medication Orders propran olol 20 mg tablet 2024 025 [facility][id number], [address] , [place], [place], [id number], 08/26/2025 10:07:26 Nurtec ODT 75 mg disinte grating tablet [email or web address] [facility]46376, [address] , [place], [place], [id number], 08/26/2025 10:07:24 Tuberso l 5 tub. unit/0. 1 mL intrade rmal injecti on solutio n 2024 025 [facility] #44192, [address], [place], [place], [id number], 08/26/2025 09:48:21 propran olol 20 mg tablet 2024 025 [facility] #60950, [address], [place], [place], [id number], 07/15/2025 10:54:47 Nurtec ODT 75 mg disinte grating tablet 2024 025 [facility] #79430, [address] , [place], [place], [id number], 07/20/2025 14:32:31 montelu kast 10 mg tablet 2024 025 [facility]11965, [address] , [place], [place], [id number], 07/15/2025 10:54:48 Advair Diskus 100 mcg-50 mcg/dos e powder for inhalat ion [facility]24 [facility], [address], [place], [place], [id number], 09/09/2025 13:52:09 Airsupr a 90 mcg-80 mcg/act uation HFA aerosol inhaler 2024 025 [facility] #55676, [address], [place], [place], [id number], 07/15/2025 10:54:47 losarta n 25 mg tablet 2023 024 [email or web address] [facility] #26707, [address], [place], [place], [id number], 07/15/2025 10:25:18 Patient TargetsNo targets recorded. Patient Instructions Encounter Date Encounter Id Patient Instructions Last Modified By Organization Details Last Modified Time 07/30/2024 [id number] Attending Physician Attestation I did not personally see or examine the patient with the resident. I was physically present to provide indirect supervision through entire encounter. I have reviewed the documentation and agree with the history, physical findings, work-up, and medical decision making as recorded. Jasmine Mcdaniel MD mmetias Not available 07/30/2024 17:55:55 04/09/2025 [id number] A healthy lifestyle: care instructions [email or web address] Not available 04/13/2025 09:07:46 I was present in the clinic to discuss this patient at the time of the visit. I agree with the documented assessment and plan Shelby Braga MD mmanek Not available 04/09/2025 11:51:44 07/15/2025 [id number] When You Want to Lose Weight: Care Instructions Not available 07/15/2025 10:54:42 learning about high blood pressure Not available 07/15/2025 10:54:41 follow up in 6-8 weeks Not available 07/15/2025 10:55:51 08/26/2025 [id number] influenza (flu) vaccine: care instructions Not available 08/26/2025 10:07:15 allergies: care instructions Not available 08/26/2025 10:07:27 When You Want to Lose Weight: Care Instructions Not available 08/26/2025 10:07:15 asthma: your action plan Not available 08/26/2025 10:07:15 learning about high blood pressure Not available 08/26/2025 10:07:15 Increase intake of fresh fruits, and vegetables. Avoid packaged foods and fast foods. Follow a low salt diet, drink at least 8-10 8oz glasses of water a day, exercise most days of the week. Take all medications as prescribed. Keep appointments with PCP and all specialists. Not available 08/26/2025 10:09:42 follow up in thr ee months or sooner if needed Not available 08/26/2025 09:56:10 Reason for Referral [facility] Referral for Envir onmental allergy Pt requested. Chronic environmental allergies. Referring Physician: Oswaldo Herrera, Ophthalmic Medical Technician, Encounter Date: 04/09/2025 Grain Elevator Agent Referral for B enign neoplasm of soft tissue Referring Physician: Antoinette Amaya [facility], Encounter Date: 07/15/2025 Psychiatrist Referral for Hi story of anxiety state Referring Physician: Antoinette Amaya [facility], Encounter Date: 07/15/2025 Results Created Date Observation Date Name Description Value Unit Range Abnormal Flag Note LastModifiedBy Organization Detail LastModifiedTime 07/23/2007/23/2025 [id number] 12+OX YCODO NE+CR T-SCR please note: COMMEN T This assay provi angelique a preli minar y uncon firme d linnette tical test resul t that may be suita ble for clini klarissa manag ement of patie nts in certa in situa tions . Drug- test resul ts shoul d be inter prete d in the cayetano xt of clini klarissa infor catherine n. Patie nt metab olic varia bles, speci fic drug chemi stry, and speci men juan pablo cteri stics can affec t test outco me. Techn ical consu ltati on is avail able if a test resul t is incon siste nt with an expec lamar outco me. Email : [email or web address] Phone : [phone] Not Available [facility] ([facility]) [address] [facility], [place], [address], 07/27/2025 20:09:38 07/23/20 25 07/24/2025 [id number] 12+OX YCODO NE+CR T-SCR amphetamines screen, urine NEGATI VE NG/mL cutoff =1000 Not Available [facility] ([facility]) [address] [facility], [place], [address], 07/27/2025 20:09:38 07/23/20 25 07/24/2025 [id number] 12+OX YCODO NE+CR T-SCR barbiturates screen, urine NEGATI VE NG/mL cutoff =200 Not Available [facility] ([facility]) [address] [place], [address], 07/27/2025 20:09:38 07/23/20 25 07/24/2025 [id number] 12+OX YCODO NE+CR T-SCR benzodiazepi christian screen, urine NEGATI VE NG/mL cutoff =200 Not Available [facility] ([facility]) [address] [place], [address], 07/27/2025 20:09:38 07/23/20 25 07/24/2025 [id number] 12+OX YCODO NE+CR T-SCR cannabinoid screen, urine POSITI VE NG/mL cutoff =20 abnormal Not Available [facility] ([facility]) [address] [place], [address], 07/27/2025 20:09:38 07/23/20 25 07/24/2025 [id number] 12+OX YCODO NE+CR T-SCR cocaine (metab.) screen, urine NEGATI VE NG/mL cutoff =300 Not Available [facility] ([facility]) [address] [place], [address], 07/27/2025 20:09:38 07/23/20 25 07/24/2025 [id number] 12+OX YCODO NE+CR T-SCR opiate screen, urine NEGATI VE NG/mL cutoff =300 Opiat e test inclu angelique Codei ne, Morph ine, [place] morph one, [place] codon e. Not Available [facility] ([facility]) [address] [place], [address], 07/27/2025 20:09:38 07/23/20 25 07/24/2025 [id number] 12+OX YCODO NE+CR T-SCR oxycodone/ox ymorphone, urine NEGATI VE NG/mL cutoff =100 Test inclu angelique Oxyco done and Oxymo rphon e Not Available [facility] ([facility]) [address] [place], [address], 07/27/2025 20:09:38 07/23/20 25 07/24/2025 [id number] 12+OX YCODO NE+CR T-SCR phencyclidin e screen, urine NEGATI VE NG/mL cutoff =25 Not Available [facility] ([facility]) [address] [place], [address], 07/27/2025 20:09:38 07/23/20 25 07/24/2025 [id number] 12+OX YCODO NE+CR T-SCR methadone screen, urine NEGATI VE NG/mL cutoff =300 Not Available [facility] ([facility]) [address] [place], [address], 07/27/2025 20:09:38 07/23/20 25 07/24/2025 [id number] 12+OX YCODO NE+CR T-SCR propoxyphene screen, urine NEGATI VE NG/mL cutoff =300 Not Available [facility] ([facility]) [address] [place], [address], 07/27/2025 20:09:38 07/23/20 25 07/24/2025 [id number] 12+OX YCODO NE+CR T-SCR meperidine screen, urine NEGATI VE NG/mL cutoff =200 This test was devel oped and its perfo rmanc e juan pablo cteri stics deter mined by [facility]. It has not been clear ed or appro radha by the Food and Drug Admin istra tion. Not Available [facility] ([facility]) [address] [place], [address], 07/27/2025 20:09:38 07/23/20 25 07/24/2025 [id number] 12+OX YCODO NE+CR T-SCR fentanyl, urine NEGATI VE pg/mL cutoff =2000 Test inclu angelique Fenta nyl and Norfe ntany l This test was devel esme and its perfo rmanc e juan pablo cteri stics deter mined by [facility]. It has not been clear ed or appro radha by the Food and Drug Admin istra tion. Not Available [facility] ([facility]) [address] [facility], [place], [address], 07/27/2025 20:09:38 07/23/20 25 07/24/2025 [id number] 12+OX YCODO NE+CR T-SCR tramadol screen, urine NEGATI VE NG/mL cutoff =200 Not Available [facility] ([facility]) [address] [facility], [place], [address], 07/27/2025 20:09:38 07/23/20 25 07/24/2025 [id number] 12+OX YCODO NE+CR T-SCR creatinine, urine 165.4 mg/dL 20.0-3 00.0 Not Available [facility] ([facility]) [address] [facility], [place], [address], 07/27/2025 20:09:38 07/23/20 25 07/24/2025 [id number] 12+OX YCODO NE+CR T-SCR pH, urine 6.4 4.5-8. 9 Not Available [facility] ([facility]) [address] [facility], [place], [address], 07/27/2025 20:09:38 07/23/20 25 07/24/2025 LIPID PANEL cholesterol, total 180 mg/dL 100-19 9 Not Available [facility] ([facility]) [address] [place], [address], 07/28/2025 10:36:49 07/23/20 25 07/24/2025 LIPID PANEL triglyceride s 187 mg/dL 0-149 above high normal Not Available [facility] ([facility]) [address] [place], [address], 07/28/2025 10:36:49 07/23/20 25 07/24/2025 LIPID PANEL HDL cholesterol 44 mg/dL >39 Not Available [facility] ([facility]) [address] [place], [address], 07/28/2025 10:36:49 07/23/20 25 07/24/2025 LIPID PANEL VLDL cholesterol klarissa 32 mg/dL 5-40 Not Available [facility] ([facility]) [address] [place], [address], 07/28/2025 10:36:49 07/23/20 25 07/24/2025 LIPID PANEL LDL chol calc ([facility]) 104 mg/dL 0-99 above high normal Not Available [facility] ([facility]) [address] [place], [address], 07/28/2025 10:36:49 07/23/20 25 07/24/2025 CMP14 (REFL EX HGB A1C) glucose 119 mg/dL 70-99 above high normal Not Available [facility] ([facility]) [address] [place], [address], 07/28/2025 10:36:50 07/23/20 25 07/24/2025 CMP14 (REFL EX HGB A1C) BUN 8 mg/dL 6-24 Not Available [facility] ([facility]) [address] [place], [address], 07/28/2025 10:36:50 07/23/20 25 07/24/2025 CMP14 (REFL EX HGB A1C) creatinine 0.68 mg/dL 0.57-1 .00 Not Available [facility] ([facility]) [address] [place], [address], 07/28/2025 10:36:50 07/23/20 25 07/24/2025 CMP14 (REFL EX HGB A1C) eGFR 107 mL/mi n/1.7 3 >59 Not Available [facility] ([facility]) [address] [facility], [place], [address], 07/28/2025 10:36:50 07/23/20 25 07/24/2025 CMP14 (REFL EX HGB A1C) BUN/creatini ne ratio 12 9-23 Not Available [facility] ([facility]) [address] [facility], [place], [address], 07/28/2025 10:36:50 07/23/20 25 07/24/2025 CMP14 (REFL EX HGB A1C) sodium 140 mmol/ L 134-14 4 Not Available [facility] ([facility]) [address] [facility], [place], [address], 07/28/2025 10:36:50 07/23/20 25 07/24/2025 CMP14 (REFL EX HGB A1C) potassium 4.2 mmol/ L 3.5-5. 2 Not Available [facility] ([facility]) [address] [place], [address], 07/28/2025 10:36:50 07/23/20 25 07/24/2025 CMP14 (REFL EX HGB A1C) chloride 105 mmol/ L 96-106 Not Available [facility] ([facility]) [address] [place], [address], 07/28/2025 10:36:50 07/23/20 25 07/24/2025 CMP14 (REFL EX HGB A1C) carbon dioxide, total 19 mmol/ L 20-29 below low normal Not Available [facility] ([facility]) [address] [place], [address], 07/28/2025 10:36:50 07/23/20 25 07/24/2025 CMP14 (REFL EX HGB A1C) calcium 8.9 mg/dL 8.7-10 .2 Not Available [facility] ([facility]) [address] [place], [address], 07/28/2025 10:36:50 07/23/20 25 07/24/2025 CMP14 (REFL EX HGB A1C) protein, total 6.5 g/dL 6.0-8. 5 Not Available [facility] ([facility]) [address] [place], [address], 07/28/2025 10:36:50 07/23/20 25 07/24/2025 CMP14 (REFL EX HGB A1C) albumin 4.3 g/dL 3.9-4. 9 Not Available [facility] ([facility]) [address] [place], [address], 07/28/2025 10:36:50 07/23/20 25 07/24/2025 CMP14 (REFL EX HGB A1C) globulin, total 2.2 g/dL 1.5-4. 5 Not Available [facility] ([facility]) [address] [place], [address], 07/28/2025 10:36:50 07/23/20 25 07/24/2025 CMP14 (REFL EX HGB A1C) bilirubin, total 0.3 mg/dL 0.0-1. 2 Not Available [facility] ([facility]) [address] [place], [address], 07/28/2025 10:36:50 07/23/20 25 07/24/2025 CMP14 (REFL EX HGB A1C) alkaline phosphatase 105 IU/L 44-121 Eff ectiv e Septe mber 2024 Alkal ine Phosp hatas e refer ence inter elma will be hayes ing to: Age Male Femal e 0 - 5 days 47 - 127 47 - 127 6 - 10 days 29 - 242 29 - 242 11 - 20 days 109 - 357 109 - 357 21 - 30 days 94 - 494 94 - 494 1 - 2 month s 149 - 539 149 - 539 3 - 6 month s 131 - 452 131 - 452 7 - 11 month s 117 - 401 117 - 401 12 month s - 6 years 158 - 369 158 - 369 7 - 12 years 150 - 409 150 - 409 13 years 156 - 435 78 - 227 14 years 114 - 375 64 - 161 15 years 88 - 279 56 - 134 16 years 74 - 207 51 - 121 17 years 63 - 161 47 - 113 18 - 20 years 51 - 125 42 - 106 21 - 50 years 47 - 123 41 - 116 51 - 80 years 49 - 135 51 - 125 >80 years 48 - 129 48 - 129 Not Available [facility] ([facility]) [address] [place], [address], 07/28/2025 10:36:50 07/23/20 25 07/24/2025 CMP14 (REFL EX HGB A1C) AST (SGOT) 15 IU/L 0-40 Not Available [facility] ([facility]) [address] [place], [address], 07/28/2025 10:36:50 07/23/20 25 07/24/2025 CMP14 (REFL EX HGB A1C) ALT (SGPT) 24 IU/L 0-32 Not Available [facility] ([facility]) [address] [place], [address], 07/28/2025 10:36:50 07/23/20 25 07/24/2025 TSH RFX ON ABNOR MAL TO FREE T4 TSH 1.630 uIU/m L 0.450- 4.500 Not Available [facility] ([facility]) [address] [place], [address], 07/28/2025 10:36:52 07/23/20 25 07/23/2025 ALLER GENS W/TOT AL IGE AREA 8 class description COMMEN T Level s of Speci fic IgE Class Descr iptio n of Class ----- ----- ----- ----- ----- -- ----- ----- ----- ----- ----- < 0.10 0 Negat marleen 0.10 - 0.31 0/I Equiv ocal/ Low 0.32 - 0.55 I Low 0.56 - 1.40 II Moder ate 1.41 - 3.90 III High 3.91 - 19.00 IV Very High 19.01 - 100.0 0 V Very High >100. 00 Very High Not Available [facility] ([facility]) [address] [place], [address], 07/28/2025 10:36:53 07/23/20 25 07/28/2025 ALLER GENS W/TOT AL IGE AREA 8 immunoglobul in E, total 107 IU/mL 6-495 Not Available [facility] ([facility]) [address] [place], [address], 07/28/2025 10:36:53 07/23/20 25 07/28/2025 ALLER GENS W/TOT AL IGE AREA 8 J722-YwC D pteronyssinu s 6.93 kU/L classi v abnormal Not Available [facility] ([facility]) [address] [place], [address], 07/28/2025 10:36:53 07/23/20 25 07/28/2025 ALLER GENS W/TOT AL IGE AREA 8 S366-JbW D farinae 9.34 kU/L classi v abnormal Not Available [facility] ([facility]) [address] [place], [address], 07/28/2025 10:36:53 07/23/2007/28/2025 ALLER GENS W/TOT AL IGE AREA 8 G306-WdS CAT dander 0.84 kU/L classi i abnormal Not Available [facility] ([facility]) [address] [place], [address], 07/28/2025 10:36:53 07/23/20 25 07/28/2025 ALLER GENS W/TOT AL IGE AREA 8 A377-VyD dog dander 0.46 kU/L classi abnormal Not Available [facility] ([facility]) [address] [place], [address], 07/28/2025 10:36:53 07/23/20 25 07/28/2025 ALLER GENS W/TOT AL IGE AREA 8 O946-SaD mouse urine <0.10 kU/L class0 Not Available [facility] ([facility]) [address] [place], [address], 07/28/2025 10:36:53 07/23/20 25 07/28/2025 ALLER GENS W/TOT AL IGE AREA 8 c120-XqJ bermuda grass 12.40 kU/L classi v abnormal Not Available [facility] ([facility]) [address] [place], [address], 07/28/2025 10:36:53 07/23/20 25 07/28/2025 ALLER GENS W/TOT AL IGE AREA 8 u095-IiF jennifer grass 10.60 kU/L classi v abnormal Not Available [facility] ([facility]) [address] [place], [address], 07/28/2025 10:36:53 07/23/20 25 07/28/2025 ALLER GENS W/TOT AL IGE AREA 8 E254-AwE cockroach, azeri <0.10 kU/L class0 Not Available [facility] ([facility]) [address] [place], [address], 07/28/2025 10:36:53 07/23/20 25 07/28/2025 ALLER GENS W/TOT AL IGE AREA 8 L223-JyG penicillium chrysogen <0.10 Not Available [facility] ([facility]) [address] [place], [address], 07/28/2025 10:36:53 07/23/20 25 07/28/2025 ALLER GENS W/TOT AL IGE AREA 8 Q351-KnN cladosporium herbarum <0.10 Not Available [facility] ([facility]) [address] [place], [address], 07/28/2025 10:36:53 07/23/20 25 07/28/2025 ALLER GENS W/TOT AL IGE AREA 8 J243-FpS aspergillus fumigatus <0.10 Not Available [facility] ([facility]) [address], [place], [address], 07/28/2025 10:36:53 07/23/20 25 07/28/2025 ALLER GENS W/TOT AL IGE AREA 8 I309-NlQ alternaria alternata <0.10 Not Available [facility] ([place] [facility]) [address] [facility], [place], [address], 07/28/2025 10:36:53 07/23/20 25 07/28/2025 ALLER GENS W/TOT AL IGE AREA 8 E581-IbH maple/box elder <0.10 Not Available [facility] ([facility]) [address] [facility], [place], [address], 07/28/2025 10:36:53 07/23/20 25 07/28/2025 ALLER GENS W/TOT AL IGE AREA 8 N672-AvJ cedar, mountain <0.10 Not Available [facility] ([facility]) [address] [facility], [place], [address], 07/28/2025 10:36:53 07/23/20 25 07/28/2025 ALLER GENS W/TOT AL IGE AREA 8 E323-VoX oak, white <0.10 Not Available [facility] ([place] [facility]) [address] [facility], [place], [address], 07/28/2025 10:36:53 07/23/20 25 07/28/2025 ALLER GENS W/TOT AL IGE AREA 8 Z531-GnR elm, stateless 0.32 kU/L classi abnormal Not Available [facility] ([place] [facility]) [address] [facility], [place], [address], 07/28/2025 10:36:53 07/23/20 25 07/28/2025 ALLER GENS W/TOT AL IGE AREA 8 E083-UlF walnut <0.10 kU/L class0 Not Available [facility] ([place] [facility]) [address] [facility], [place], [address], 07/28/2025 10:36:53 07/23/20 25 07/28/2025 ALLER GENS W/TOT AL IGE AREA 8 W900-KxW maple leaf sycamore <0.10 Not Available [facility] ([place] [facility]) [address] [facility], [place], [address], 07/28/2025 10:36:53 07/23/20 25 07/28/2025 ALLER GENS W/TOT AL IGE AREA 8 A312-AbP cottonwood 0.12 kU/L class0 /I abnormal Not Available [facility] ([place] [facility]) [address] [facility], [place], [address], 07/28/2025 10:36:53 07/23/20 25 07/28/2025 ALLER GENS W/TOT AL IGE AREA 8 D201-CnF sindhu, white <0.10 kU/L class0 Not Available [facility] ([place] [facility]) [address] [facility], [place], [address], 07/28/2025 10:36:53 07/23/20 25 07/28/2025 ALLER GENS W/TOT AL IGE AREA 8 E727-IcT pecan, hickory <0.10 Not Available [facility] ([place] [facility]) [address] [facility], [place], [address], 07/28/2025 10:36:53 07/23/20 25 07/28/2025 ALLER GENS W/TOT AL IGE AREA 8 W435-FnB white mulberry <0.10 Not Available [facility] ([place] [facility]) [address] [facility], [place], [address], 07/28/2025 10:36:53 07/23/20 25 07/28/2025 ALLER GENS W/TOT AL IGE AREA 8 H011-RcL ragweed, short 0.49 kU/L classi abnormal Not Available [facility] ([facility]) [address] [facility], [place], [address], 07/28/2025 10:36:53 07/23/20 25 07/28/2025 ALLER GENS W/TOT AL IGE AREA 8 G566-GuV thistle, chadian <0.10 kU/L class0 Not Available [facility] ([facility]) [address] [facility], [place], [address], 07/28/2025 10:36:53 07/23/20 25 07/28/2025 ALLER GENS W/TOT AL IGE AREA 8 P473-XdA pigweed, common <0.10 Not Available [facility] ([facility]) [address] [facility], [place], [address], 07/28/2025 10:36:53 07/23/20 25 07/28/2025 ALLER GENS W/TOT AL IGE AREA 8 R645-ZvC rough marshelder 0.34 kU/L classi abnormal Not Available [facility] ([facility]) [address] [place], [address], 07/28/2025 10:36:53 07/23/2007/28/2025 FOOD ALLER GY PROFI LE O658-IaO egg white <0.10 kU/L class0 Not Available [facility] ([facility]) [address] [place], [address], 07/28/2025 10:36:54 07/23/20 25 07/28/2025 FOOD ALLER GY PROFI LE N686-RaM peanut <0.10 Not Available [facility] ([facility]) [address] [place], [address], 07/28/2025 10:36:54 07/23/20 25 07/28/2025 FOOD ALLER GY PROFI LE V673-AuD soybean <0.10 Not Available [facility] ([facility]) [address] [place], [address], 07/28/2025 10:36:54 07/23/20 25 07/28/2025 FOOD ALLER GY PROFI LE L978-ArP milk 0.31 kU/L class0 /I abnormal Not Available [facility] ([facility]) [address] [facility], [place], [address], 07/28/2025 10:36:54 07/23/20 25 07/28/2025 FOOD ALLER GY PROFI LE C123-SpL clam <0.10 kU/L class0 Not Available [facility] ([facility]) [address] [facility], [place], [address], 07/28/2025 10:36:54 07/23/20 25 07/28/2025 FOOD ALLER GY PROFI LE [id number] shrimp <0.10 Not Available [facility] ([facility]) [address] [place], [address], 07/28/2025 10:36:54 07/23/20 25 07/28/2025 FOOD ALLER GY PROFI LE [id number] walnut <0.10 Not Available [facility] ([facility]) [address] [place], [address], 07/28/2025 10:36:54 07/23/20 25 07/28/2025 FOOD ALLER GY PROFI LE [id number] codfish <0.10 Not Available [facility] ([facility]) [address] [place], [address], 07/28/2025 10:36:54 07/23/20 25 07/28/2025 FOOD ALLER GY PROFI LE [id number] scallop <0.10 Not Available [facility] ([facility]) [address] [facility], [place], [address], 07/28/2025 10:36:54 07/23/20 25 07/28/2025 FOOD ALLER GY PROFI LE [id number] wheat 0.31 kU/L class0 /I abnormal Not Available [facility] ([facility]) [address] [facility], [place], [address], 07/28/2025 10:36:54 07/23/20 25 07/28/2025 FOOD ALLER GY PROFI LE [id number] corn <0.10 kU/L class0 Not Available [facility] ([facility]) [address] [facility], [place], [address], 07/28/2025 10:36:54 07/23/20 25 07/28/2025 FOOD ALLER GY PROFI LE [id number] sesame seed <0.10 Not Available [facility] ([facility]) [address] [facility], [place], [address], 07/28/2025 10:36:54 07/23/20 25 07/24/2025 HB A1C hemoglobin A1C 5.6 % 4.8-5. 6 Predi abete s: 5.7 - 6.4 Diabe nataliya: >6.4 Glyce alfred contr ol for adult s with diabe nataliya: <7.0 Not Available [facility] ([facility]) [address] [place], [address], 07/28/2025 10:36:56 07/23/20 25 07/24/2025 CBC, PLATE LET, NO DIFFE RENTI AL WBC 12.4 x10e3 /uL 3.4-10 .8 above high normal Not Available [facility] ([facility]) [address] [place], [address], 07/28/2025 10:36:56 07/23/20 25 07/24/2025 CBC, PLATE LET, NO DIFFE RENTI AL RBC 4.55 x10e6 /uL 3.77-5 .28 Not Available [facility] ([facility]) [address] [facility], [place], [address], 07/28/2025 10:36:56 07/23/2007/24/2025 CBC, PLATE LET, NO DIFFE RENTI AL hemoglobin 13.1 g/dL 11.1-1 5.9 Not Available [facility] ([facility]) [address] [facility], [place], [address], 07/28/2025 10:36:56 07/23/2007/24/2025 CBC, PLATE LET, NO DIFFE RENTI AL hematocrit 40.5 % 34.0-4 6.6 Not Available [facility] ([facility]) [address] [facility], [place], [address], 07/28/2025 10:36:56 07/23/2007/24/2025 CBC, PLATE LET, NO DIFFE RENTI AL MCV 89 fL 79-97 Not Available [facility] ([facility]) [address] [facility], [place], [address], 07/28/2025 10:36:56 07/23/2007/24/2025 CBC, PLATE LET, NO DIFFE RENTI AL MCH 28.8 pg 26.6-3 3.0 Not Available [facility] ([facility]) [address] [facility], [place], [address], 07/28/2025 10:36:56 07/23/2007/24/2025 CBC, PLATE LET, NO DIFFE RENTI AL MCHC 32.3 g/dL 31.5-3 5.7 Not Available [facility] ([facility]) [address] [facility], [place], [address], 07/28/2025 10:36:56 07/23/2007/24/2025 CBC, PLATE LET, NO DIFFE RENTI AL RDW 13.5 % 11.7-1 5.4 Not Available [facility] ([facility]) [address] [facility], [place], [address], 07/28/2025 10:36:56 07/23/20 25 07/24/2025 CBC, PLATE LET, NO DIFFE RENTI AL platelets 366 x10e3 /uL 150-45 0 Not Available [facility] ([facility]) [address] [facility], [place], [address], 07/28/2025 10:36:56 Result Notes None recorded. Problems Name Problem SNOMED Code Status Onset Date Resolution Date Notes Provider Name and Address Organization Details Recorded Time Asthma 679961666 Active 2020 Ana Johnson [place] null, [place] - [facility] 1 15:19:02 Anxiety 24417532 Active 2020 Ana Johnson [place], [place] [facility] 1 15:19:32 Neck pain 86661552 Active 2021 Nichelle Fitzgerald MD Attn: Accounting ,[address] [facility], [place], [address] , [place] - [facility] 2 16:41:27 Body mass index 40+ - severely obese 087983065 Active 2021 Nichelle Fitzgerald MD Attn: Accounting ,[address] [place], [address] , [place] - [facility] 2 16:41:33 Panic attack 453554999 Active 2021 Nichelle Fitzgerald MD Attn: Accounting ,[address] [facility], [place], [address] , [place] - [facility] 2 16:41:43 Essential hypertens ion 87899864 Active 2021 Nichelle Fitzgerald MD Attn: Accounting ,[address] [facility], [place], [address] , [place] - [facility] 2 16:41:45 Pain of left knee joint 12867201586 4107 Active 2021 Nichelle Fitzgerald MD Attn: Accounting ,[address] [place], [address] , [place] - [facility] 2 14:26:39 Morbid obesity 412389117 Active 2021 Nichelle Fitzgerald MD Attn: Accounting ,[address] [facility], [place], [address] , [place] [facility] 2 14:39:46 Allergic rhinitis 96889224 Active 2022 Jamie Vilchis MD Attn: Accounting ,[address] [place], [address] , [place] - [facility] 3 17:37:04 Abnormal cervical Papanicol aou smear 881540781 Active 2022 [facility] Positive HPV HR Non 16/18+: with noted mild dysplasia /CIN1. Pt will need colposcop y. Following with Dr. Araceli Michael MD Attn: Accounting ,[address] [place], [address] , [place] [facility] 3 21:56:53 Environme ntal allergy 251309738 Active 2023 Antoinette Amaya APN, FNP-C Attn: Accounting ,[address] [place], [address] , [place] [facility] 5 10:54:25 Pruritic disorder of skin Active 2023 Nichelle Fitzgerald MD Attn: Accounting ,[address] [place], [address] , [place] [facility] 4 17:14:06 History of anxiety state 123003004 Active 2024 Antoinette Amaya APN, FNP-C Attn: Accounting ,[address] [place], [address] , [place] [facility] 5 10:54:24 Benign neoplasm of soft tissue 98424699 Active 2024 Antoinette Amaya APN, FNP-C Attn: Accounting ,[address] [place], [address] , [place] - [facility] 5 10:54:27 History of migraine 600102204 Active 2024 Antoinette Amaya APN, HERMINIA Attn: Accounting ,[address] [facility], [place], [address] , [facility] - [facility] 5 10:54:29 Problem Notes None recorded. Procedures Surgical History Date Name Laterality Status Provider Name and Address Organization Details Recorded Time 6 Hernia Repair completed [facility] - [facility] 07/18/2021 15:29:24 2 Tonsillectomy completed [facility] - [facility] 07/18/2021 15:29:33 Imaging Results None recorded. Procedure Notes None recorded. Medical Equipment None Reported. Allergies Allergen ID Allergen Name Allergen Category Reaction Reaction Severity Criticality Documentation Date Start Date Code Code System Note Provider Name and Address Organization Details Recorded Time 148146 grass pollen environme nt,medica tion Not available Not available Not available 02/13/2024 [place] Dean [place] - [facility] 4 16:53:33 769749 house dust mite environme nt Not available Not available Not available 02/13/2024 KWAKU Dean [place] - [facility] 4 16:53:39 810603 mold extract environme nt Not available Not available Not available 02/13/2024 32689 8 RxNorm KWAKU Dean, [facility] 4 16:53:55 Medications Name Sig Start Date Stop Date Status Note LastModified by Organization Details LastModified Time losartan 50 mg tablet TAKE 1 TABLET BY MOUTH EVERY DAY IN THE MORNING 07/19 completed Not Available Not Available Not Available cyclobenz aprine 10 mg tablet TAKE 1 TABLET BY MOUTH EVERY DAY AT BEDTIME 12/31 completed Not Available Not Available Not Available neomycin- polymyxin -hydrocor t 3.5 mg/mL-10, 000 unit/mL-1 % ear solution INT 4 DROPS INTO RIGHT EAR EVERY 8 HOURS FOR 10 DAYS 07/18 completed Not Available Not Available Not Available prednison e 10 mg tablet TAKE 3 TABLETS BY MOUTH DAILY 07/18 completed Not Available Not Available Not Available clindamyc in HCl 300 mg capsule TAKE 1 CAPSULE BY MOUTH THREE TIMES DAILY UNTIL ALL TAKEN 07/15 completed pt is not taking 04/09/25 Not Available Not Available Not Available cetirizin e 10 mg tablet TAKE 1 TABLET BY MOUTH EVERY DAY 07/15 completed PRN 04/09/25 Not Available Not Available Not Available azithromy noel 250 mg tablet TAKE 2 TABLETS BY MOUTH ON DAY 1 AND 1 TABLET ON DAYS 2 THROUGH 5 08/26 completed Not Available Not Available Not Available ibuprofen 800 mg tablet TAKE 1 TABLET BY MOUTH EVERY 6 HOURS NEEDED active Not Available Not Available No t Available alprazola m 1 mg tablet TAKE 1 TABLET BY MOUTH TWICE DAILY NEEDED active Not Available Not Available No t Available tizanidin e 4 mg tablet TAKE 1 TABLET BY MOUTH EVERY 6 HOURS NEEDED FOR MUSCLE SPASMS 07/19 completed Not Available Not Available Not Available fluconazo le 150 mg tablet 07/30 completed Not Available Not Available Not Available benzonata te 200 mg capsule TAKE 1 CAPSULE BY MOUTH THREE TIMES DAILY NEEDED FOR COUGH 07/15 completed Not Available Not Available Not Available valacyclo vir 1 gram tablet TK 1 T PO BID PRF COLD SORES 07/18 completed Not Available Not Available Not Available fluconazo le 200 mg tablet TAKE 1 ORAL TABLET TODAY, THEN TAKE THE 2ND ORAL TABLET AFTER COMPLETI NG ALL ANTIBIOT ICS. 07/15 completed pt is not taking 04/09/25 Not Available Not Available Not Available ondansetr on HCl 4 mg tablet TAKE 2 TABLETS BY MOUTH TWICE DAILY 07/30 completed Not Available Not Available Not Available prednison e 20 mg tablet TAKE 1 TABLET BY MOUTH DAILY FOR 5 DAYS 07/15 completed pt is not taking 04/09/25 Not Available Not Available Not Available Tubersol 5 tub. unit/0.1 mL intraderm al injection solution Administ er .1ml interder mike 08/26 completed Not Available Not Available Not Available sertralin e 100 mg tablet TAKE 1 AND 1/2 TABLETS BY MOUTH EVERY DAY 12/31 completed Not Available Not Available Not Available penicilli n V potassium 500 mg tablet TAKE 1 TABLET BY MOUTH FOUR TIMES DAILY 07/30 completed Not Available Not Available Not Available Advair Diskus 100 mcg-50 mcg/dose powder for inhalatio n INHALE 1 PUFF BY MOUTH TWICE DAILY 2024 active Not Available Not Available Not Avai lable metronida zole 500 mg tablet Take 1 tablet every 12 hours by oral route with meals for 7 days. 07/30 completed Not Available Not Available Not Available valacyclo vir 500 mg tablet 07/15 completed pt is not taking 04/09/25 Not Available Not Available Not Available ciproflox acin 500 mg tablet TAKE 1 TABLET BY MOUTH TWICE A DAY FOR 7 DAYS 07/15 completed pt is not taking 04/09/25 Not Available Not Available Not Available sulfameth oxazole 800 mg-trimet hoprim 160 mg tablet TAKE 1 TABLET BY MOUTH TWICE A DAY FOR 7 DAYS 07/15 completed pt is not taking 04/09/25 Not Available Not Available Not Available doxycycli ne monohydra te 100 mg tablet 07/18 completed Not Available Not Available Not Available tramadol 50 mg tablet TAKE 1 TABLET BY MOUTH EVERY 6 HOURS NEEDED FOR PAIN 07/15 completed pt is not taking 04/09/25 Not Available Not Available Not Available amoxicill in 500 mg tablet TK 1 T PO Q 12 H TAT 07/18 completed Not Available Not Available Not Available propranol ol 10 mg tablet TAKE 1 TABLET BY MOUTH TWICE DAILY 08/26 completed Not Available Not Available Not Available amoxicill in 875 mg tablet TAKE 1 TABLET BY MOUTH TWICE A DAY 07/15 completed Not Available Not Available Not Available tamsulosi n 0.4 mg capsule TAKE 1 CAPSULE BY MOUTH EVERY DAY FOR 14 DAYS 07/15 completed pt is not taking 04/09/25 Not Available Not Available Not Available benzonata te 100 mg capsule TAKE 1 CAPSULE BY MOUTH EVERY 8 HOURS NEEDED 07/15 completed pt is not taking 04/09/25 Not Available Not Available Not Available pantopraz ole 40 mg tablet,de layed release 07/15 completed pt is not taking 04/09/25 Not Available Not Available Not Available nitrofura ntoin macrocrys anjel 100 mg capsule TAKE 1 CAPSULE BY MOUTH TWICE A DAY 02/11 completed Not Available Not Available Not Available dexametha sone 4 mg tablet TAKE 1 TABLET BY MOUTH DAILY UNTIL FINISHED 07/18 completed Not Available Not Available Not Available buspirone 10 mg tablet TAKE 1 TABLET BY MOUTH TWICE DAILY 02/12 completed Not Available Not Available Not Available lisinopri l 10 mg tablet TAKE 1 TABLET BY MOUTH EVERY DAY 10/01 completed Not Available Not Available Not Available lidocaine 5 % topical patch APPLY 1 PATCH TOPICALL Y TO THE SKIN EVERY DAY. MAY WEAR UP TO 12 HOURS 07/19 completed Not Available Not Available Not Available losartan 25 mg tablet TAKE 1 TABLET BY MOUTH EVERY DAY 07/15 completed pt is not taking 04/09/25 Not Available Not Available Not Available omeprazol e 20 mg capsule,d elayed release TAKE 1 CAPSULE BY MOUTH EVERY DAY 02/12 completed Not Available Not Available Not Available monteluka st 10 mg tablet Take 1 tablet every day by oral route for 30 days. 2024 active Not Available Not Available Not Avai lable hydroxyzi ne HCl 25 mg tablet TAKE 1 TABLET BY MOUTH TWICE DAILY 08/26 completed Not Available Not Available Not Available methylpre dnisolone 4 mg tablets in a dose pack FOLLOW PACKAGE DIRECTIO NS 07/15 completed Not Available Not Available Not Available albuterol sulfate HFA 90 mcg/actua tion aerosol inhaler INHALE 2 PUFFS BY MOUTH EVERY 4 HOURS NEEDED active Not Available Not Available No t Available norethind adri (contrace ptive) 0.35 mg tablet 07/15 completed pt is not taking 04/09/25 Not Available Not Available Not Available propranol ol 20 mg tablet Take 1 tablet twice a day by oral route. 2024 active Not Available Not Available Not Avai lable cefdinir 300 mg capsule TAKE 1 CAPSULE BY MOUTH EVERY 12 HOURS 09/24 completed Not Available Not Available Not Available fluticaso ne propionat e 50 mcg/actua tion nasal spray,jaja pension SHAKE LIQUID AND USE 1 SPRAY IN EACH NOSTRIL EVERY DAY FOR 14 DAYS 07/15 completed pt is not taking 04/09/25 Not Available Not Available Not Available naproxen 500 mg tablet TAKE 1 TABLET BY MOUTH TWICE DAILY WITH MEALS NEEDED FOR PAIN 07/19 completed Not Available Not Available Not Available amoxicill in 875 mg-potass ium clavulana te 125 mg tablet TAKE 1 TABLET BY MOUTH EVERY 12 HOURS FOR 7 DAYS 07/15 completed pt is not taking 04/09/25 Not Available Not Available Not Available amoxicill in 500 mg-potass ium clavulana te 125 mg tablet TAKE 1 TABLET BY MOUTH TWICE DAILY FOR 7 DAYS 07/15 completed Not Available Not Available Not Available escitalop gibson 10 mg tablet TAKE 1 TABLET BY MOUTH DAILY 07/15 completed Not Available Not Available Not Available escitalop gibson 20 mg tablet TAKE 1 TABLET BY MOUTH DAILY active Not Available Not Available No t Available Premarin 0.625 mg/gram vaginal cream 07/15 completed pt is not taking 04/09/25 Not Available Not Available Not Available bupropion HCl XL 150 mg 24 hr tablet, extended release TAKE 1 TABLET BY MOUTH DAILY IN THE MORNING 07/15 completed Not Available Not Available Not Available escitalop gibson 5 mg tablet TAKE 1 TABLET BY MOUTH DAILY 07/15 completed Not Available Not Available Not Available nitrofura ntoin monohydra te/macroc rystals 100 mg capsule TAKE 1 CAPSULE BY MOUTH TWICE A DAY 07/15 completed pt is not taking 04/09/25 Not Available Not Available Not Available Stimulant Laxative Plus 8.6 mg-50 mg tablet TAKE 1 TABLET BY MOUTH TWICE DAILY TO HELP WITH BETTER BOWEL MOVEMENT S / CONSTIPA TION 07/15 completed pt is not taking 04/09/25 Not Available Not Available Not Available Junel Fe 24 1 mg-20 mcg (24)/75 mg (4) tablet TAKE 1 TABLET BY MOUTH EVERY DAY 12/31 completed Not Available Not Available Not Available Blisovi Fe 12/14 (28) 1 mg-20 mcg (21)/75 mg (7) tablet TAKE 1 TABLET BY MOUTH DAILY 07/15 completed Not Available Not Available Not Available Ozempic 0.25 mg or 0.5 mg (2 mg/1.5 mL) subcutane ous pen injector INJECT 0.25 UNDER THE SKIN WEEKLY 07/19 completed Not Available Not Available Not Available Nurtec ODT 75 mg disintegr ating tablet Take by oral route for 30 days. 2024 active Not Available Not Available Not Avai lable Paxlovid 300 mg (150 mg x 2)-100 mg tablets in a dose pack TK 2 NIRMATRE LVIR TS AND 1 RITONAVI R T TOGETHER PO BID FOR 5 DAYS BID FOR 5 DAYS 10/01 completed Not Available Not Available Not Available Mounjaro 2.5 mg/0.5 mL subcutane ous pen injector 02/12 completed Not Available Not Available Not Available Auvelity 45 mg-105 mg tablet, extended release Take 1 tablet twice a day by oral route. 08/26 completed gave her suicidal thoughts Not Available Not Available Not Available Airsupra 90 mcg-80 mcg/actua tion HFA aerosol inhaler USE 2 INHALATI ONS BY MOUTH DIRECTED FOR ASTHMA, LIMIT OF 12 PUFFS IN 24 HOURS active Not Available Not Available No t Available Vitals Date Recorded Body height Body mass index (BMI) Body weight Respiratory rate Body temperature Oxygen saturation Oxygen saturation in Arterial blood by Pulse oximetry Heart rate Systolic And Diastolic Provider Name and Address Organization Details Last Updated DateTime 5 162.56 cm 40.3 kg/m2 898658. 21 g 18 /min 97.8 [degF] 96 % 96 % 84 /min 134/88 mm[Hg] Natacha Earl Yung [place] - [facility] 5 10:31:07 Date Recorded Body height Body mass index (BMI) Body weight Oxygen saturation Oxygen saturation in Arterial blood by Pulse oximetry Respiratory rate Body temperature Heart rate Systolic And Diastolic Provider Name and Address Organization Details Last Updated DateTime 5 162.56 cm 40.3 kg/m2 158994. 21 g 98 % 98 % 16 /min 97.5 [degF] 68 /min 140/100 mm[Hg] RAIN Pink [place] - [facility] 5 10:30:31 Date Recorded Body height Respiratory rate Body temperature Oxygen saturation Oxygen saturation in Arterial blood by Pulse oximetry Heart rate Body mass index (BMI) Body weight Systolic And Diastolic Provider Name and Address Organization Details Last Updated DateTime 4 162.56 cm 16 /min 96.8 [degF] 97 % 97 % 76 /min 39.3 kg/m2 703384. 7 g 151/98 mm[Hg] Rosanna Huerta MA [place] - [facility] 16:46:23 Date Recorded Systolic And Diastolic Provider Name and Address Organization Details Last Updated DateTime 08/26/2025 122/82 mm[Hg] Antoinette Amaya APN, HERMINIA Attn: Accounting,[address] [facility], [place], [address], [place] - [facility] 08/26/2025 10:20:57 Date Recorded Body height Body mass index (BMI) Body weight Respiratory rate Body temperature Oxygen saturation Oxygen saturation in Arterial blood by Pulse oximetry Heart rate Systolic And Diastolic Provider Name and Address Organization Details Last Updated DateTime 162.56 cm 40.3 kg/m2 864258. 49 g 18 /min 97.5 [degF] 97 % 97 % 68 /min 153/93 mm[Hg] Sandeep Ricks [facility] 09:51:41 Social History Question Answer Notes LastModified by Organizat ion Details LastModified Time Tobacco Smoking Status Current Some Day Smoker occasionally RAIN Pink, [facility] 07/15/2025 10:27:18 Do You Have An Advance Directive? No Information not available 08/26/2025 Are You Blind Or Do You Have Difficulty Seeing? No Glasses Information not available 07/15/2025 Is Blood Transfusion Acceptable In An Emergency? Yes Information not available 07/18/2021 What Is Your Level Of Caffeine Consumption? Moderate Information not available 07/18/2021 In The 14 Days Before Symptom Onset, Have You Had Close Contact With A Laboratory-confi rmed COVID-19 While That Case Was Ill? No Information not available 07/18/2021 In The 14 Days Before Symptom Onset, Have You Had Close Contact With A Person Who Is Under Investigation For COVID-19 While That Person Was Ill? No Information not available 07/18/2021 Have You Been To An Area Known To Be High Risk For COVID-19? No Information not available 07/18/2021 Are You Deaf Or Do You Have Serious Difficulty Hearing? No Information not available 07/15/2025 What Type Of Diet Are You Following? REGULAR Information not available 07/18/2021 What Is The Highest Grade Or Level Of School You Have Completed Or The Highest Degree You Have Received? [id number] Information not available 07/18/2021 Are There Any Guns Present In Your Home? No Information not available 08/26/2025 What Was The Date Of Your Most Recent Tobacco Screening? 08/26/2025 Information not available 08/26/2025 How Many Children Do You Have? 1 Information not available 07/18/2021 What Is Your Relationship Status? Information not available 08/26/2025 Do You Use Your Seat Belt Or Car Seat Routinely? Yes Information not available 07/18/2021 Are You Sexually Active? Yes Information not available 07/18/2021 Do You Have Smoke And Carbon Monoxide Detectors In Your Home? Yes Information not available 10/01/2022 Are You Passively Exposed To Smoke? Yes Information not available 10/01/2022 Do You Use Sunscreen Routinely? Yes Information not available 07/18/2021 Has Tobacco Cessation Counseling Been Provided? No [email or web address] Information not available 02/13/2024 On What Date Was Tobacco Cessation Counseling Provided? 08/26/2025 Information not available 08/26/2025 How Many Years Have You Smoked Tobacco? 15 [email or web address] Information not available 04/09/2025 Sex: Female Functional Status Question Answer Note LastModified by Organizat ion Details LastModified Time Do you use any illicit or recreational drugs? No Information not available 07/18/2021 Do you or have you ever used any other forms of tobacco or nicotine? No Information not available 07/18/2021 What is your level of alcohol consumption? Occasional Information not available 07/18/2021 Are you currently employed? No Information not available 07/15/2025 Are you able to care for yourself independently? Yes Information not available 07/15/2025 What is your exercise level? None Information not available 07/15/2025 Mental Status Question Answer Note LastModified by Organization D etails LastModified Time Do you feel stressed (tense, restless, nervous, or anxious, or unable to sleep at night)? [id number] Information not available 07/18/2021 Family History Relationship Description Onset Age of this Age Resolved Age Notes LastModified by Organization Details LastModified Time Mother Heart disease [email or web address] Not available 07/18 15:24:17 Mother Hypertensive disorder [email or web address] Not available 07/18 15:24:23 Maternal Grandmother Malignant neoplasm of breast 60 [email or web address] Not available 07/18 15:24:45 Maternal Grandmother Diabetes mellitus [email or web address] Not available 07/18 15:24:53 Medical History Condition Response Coronary Artery Disease N Other N High Blood Pressure Y Breast Cancer N Blood Clots N Depression Y Lung Disease N Breast Problem N Anesthesia Complications N Headaches/Migraines Y Anxiety Disorder Y Muscle, Joint, or Bone Problems N Infertility N Polyps N Acid Reflux (GERD) N Cancer N Stroke N Endometriosis N High Cholesterol N Liver Disease N Headaches Y Thyroid Problems N Kidney or Bladder Problems N GI Problems N Acne N Have you had a mammogram in the last yea r? N Skin Problems N Eating Disorder N Anemia N Heart Attack ([place]) N Ovarian Cancer N Diabetes N Blood Transfusions N Seizures/Epilepsy N Have you had a colonoscopy in the last 1 0 years? N Abuse/Domestic Violence N Asthma Y Allergies Y Substance Abuse N Hepatitis N Heart Disease N Pre-Eclampsia N Osteoporosis N Heart Failure N Gynecological History Statement/Question Response Flow Light Date of LMP 08/17/2025 On BCP's at Conception? N STIs/STDs N HPV Vaccine N Duration of Flow (days) 4 Most Recent Mammogram Age at Menarche 15 Current Control Method BCPs Age at First Child 22 Sexually Active? Y Menses Monthly No Date of Last Pap Smear Sexual Problems? N LMP Approximate Desired Control Method BCPs Obstetrics History GPAL:G 1 P 1 0 0 1 Type Value Multiple Births 0 Full Term 1 Induced 0 Spontaneous 0 Premature 0 Living 1 Ectopics 0 Total 1 Immunizations Vaccine Type Date Status Note Provider Nam e and Address Organization Details Recorded Time COVID-19, mRNA, LNP-S, PF, 30 mcg/0.3 mL dose 12/02/2020 completed Esme Ackerman RN null, [place] - [facility] 12/07/2020 11:12:58 COVID-19, mRNA, LNP-S, PF, 30 mcg/0.3 mL dose 11/11/2020 completed Esme Ackerman RN null, [place] [facility] 12/07/2020 11:13:51 DTaP, unspecified formulation 08/26/2007 completed JASMINE MCDANIEL MD Attn: Accounting,[address] [place], [place], [address] [place] [address], [place] [facility] 02/18/2023 14:37:48 Tdap 03/01/2016 completed JASMINE MCDANIEL MD Attn: Accounting,[address] [place], [place], [address] [place] [address], [place] [facility] 02/18/2023 14:37:48 COVID-19, mRNA, LNP-S, PF, 30 mcg/0.3 mL dose 09/06/2021 completed Chelo Colvin LPN [place], [place] [facility] 09/06/2021 17:19:12 Tdap 09/12/2022 completed Elisa Mitchell MD Attn: Accounting,[address] [place], [address] [place] [address], [place] [facility] 09/12/2022 22:33:41 Influenza, split virus, trivalent, PF 08/26/2025 completed Sandeep Ricks [place] [facility] 08/26/2025 09:59:51 Past Encounters Encounter ID Performer Location Encounter Start Date Encounter Closed Date Diagnosis/Indication Diagnosis SNOMED-CT Code Diagnosis ICD10 Code Diagnosis IMO Codes Diagnosis Note [id number] [facility] [address] [place] [address] 07/18/2021 15:08:28 07/20/2021 11:22:12 Gynecologic examination 26800500 Z01.419 Normal female exam. No result available from last pap. Pap done. Venereal d isease screening 352452819 Z11.3 Telephone visit one week for results. Vaginal odor 038416972 N 89.8 Normal exam. Will check culture, dwp. Screening for malignant neoplasm of breast 544419914 Z12.39 Last mammogram 06/2020. Mammogram ordered. Obesity 151552541 E66.9 Nutrition and exercise discussed. Surveillan ce of oral contraception 322553382 Z30.41 Refill sent. 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 Pt endorses tenderness down to end of trapezius muscle. No swelling, erythema, ecchymosis . Muscle strength equal bilat upper limbs. Due to PE findings and lack of tingling/n europathy likely muscular strain vs nerve compressio n. Highly suspect for trapezius muscle strain due to acute nature of onset.Pt declines PT at this time.Will monitorDis cussed and demonstrat ed back stretches and patient understand s them. Body mass index 40+ - severely obese 375802459 Z68.41 bmi 41.7 Discussed diet at length including healthier food options, increase vegetable and fiber intake, reduce salt intake, incorporat e yoga/stret priscila practices and exercise 30 min 5 x per week to improve cardiovasc ular health.Dec line nutritioni st Recently had labs done at outside facilityWi ll send labs here with record releaseFol low up Essential hypertension 60881113 I10 currently 152/110 ---> Repeat 144/92 while in officeDeni es HAtaking lisinopril 10 mg qd Will check home cuffAddres s HTN at next visit [id number] MD Sima MENDEZ 14 IM [address] [facility] [place] [address] 05/10/2022 15:46:59 05/15/2022 11:28:12 Body mass index 40+ - severely obese 968871755 Z68.41 bmi 41.7 two months ago -- now 41 Discussed diet at length including healthier food options, increase vegetable and fiber intake, reduce salt intake, incorporat e yoga/stret priscila practices and exercise 30 min 5 x per week to improve cardiovasc ular health.Dec line nutritioni st 2 months ago but currently feels more motivated - will send referralpl an for close follow up within 4-6 weeks to assess patient progress Has not had success with sending labs clearance from previous PCP - lipid, Hba1c, TSH w reflex t4, CBC, CMP to asses underlying conditions Panic attack 705689863 F 41.0 since son 8 yrs agounder 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 - alpzolam endorses several attacks in a year with triggers known to happen at work - supportive environmen t last panic attack has been over 2 months agogeno's birthday is tomorrow - goal is to have a good day Essential hypertension 38884725 I10 last BP check 152 systolic (at that time pt did not have associated symptoms no REINOSO)Current ly 138/94 (05/10/22) Now endorses Tiburcio prescribed 10 mg lisinopril but has not been taking it - upon further discussion and education re end organ damage with hypertensi on pt states she is ready to take daily medication and willing to try lisinopril 10 mg po qd - will have follow up appt in 1 month to check progress. Morbid obesity 941973070 E66.01 see above BMI [id number] MD Sima MENDEZ 14 IM [address] [facility] [address] [place] [address] 06/07/2022 13:56:21 06/11/2022 13:03:56 Morbid obesity 891052776 E66.01 see above BMI 40.8Discus sed diet at length including healthier food options, increase vegetable and fiber intake, reduce salt intake, incorporat e yoga/stret priscila practices and exercise 30 min 5 x per week to improve cardiovasc ular health.Dis cussed weight bearing with pounds of pressure on joints - pt demonstrat ed understand ing Nutritioni st appt set up 07/2022 per last referral Pain of le ft knee joint [id number] 81535 M25.562 LEFT KNEE pain x 2 mo duration s/p moving furniture / increased exerting than usual.4/10 usually but can be 7/10 with exertion or in AM. denies stabbing, clicking, more of a dull acheibupro fen no reliefPt has not tried physical therapy - would prefer to hold off on physical therapy Under care of podiatry Dr Rakesh davis left foot 2007 - discussed orthotics - unaffordba le Discussed investing innon-cust om orthotics to help with in-toeing walking visible with more wear on medial aspect of shoe on left sidePt also sits cross legged often and discussed adding pressure to tender area of Lt lateral thigh -Discussed sitting with impinging posterior thigh - pt expressed understand ing in positional changes Spent 5 minutes demonstrat ing exercises on examine table for knee strengthen ing which patient agreeable to include at home - will revisit clinic if no improvemen t and will XR of left knee to r/o jt space narrowing Essential hypertension 88057515 I10 last visit 138/94 (05/10/22) Current visit 180/108 ( 2) - stopped lisinopril 10 mg x 1 week 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 Gastroesop hageal reflux disease 456572759 K21.9 Trial of PPI; re-eval in 4-6 weeks Essential hypertension 50769179 I10 elevated to 150/88 in clinic today. States she is currently dealing with alot of stress. 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 [id number] MD Sima Spangler 14 IM [address] [facility] [place] [address] 09/12/2022 08:51:33 09/21/2022 14:16:39 Administration of diphtheria, pertussis, and tetanus vaccine 858204304 Z23 Adult heal th examination 455176139 Z00.00 - up to date on pap smear- due for mammogram Renewal of prescription 368404183 Z76.0 Irregular periods 592004 07 N92.6 - renewed OCP; one time only as patient is currently actively trying to quit smoking- reviewed with patient risks of being >35 yo and smoking; has a higher risk of DVT/PE; patient understand ing of risks- will assess how smoking cessation is going in 1 month Smoker 51844990 F17.200 - patient scheduled for hypnothera for smoking cessation- will assess smoking cessation in 1 month Screening mammography 24 736843 Z12.31 [id number] MD Sima Nixon 14 IM [address] [facility] [place] [address] 10/01/2022 16:26:01 10/02/2022 11:53:24 Venereal disease screening 891418311 Z11.3 Would like to get screening for STI- Will get HIV/HCV 1x testing- will self swab [id number] MD Sima Spangler 14 [address] [facility] [place] [place] [address] 10/16/2022 16:22:33 10/17/2022 10:45:37 Morbid obesity 787665331 E66.01 BMI: 40.2 Wt:234Have spoken with pt about the health risks associated with having an elevated BMI and educated them about lifestyle modificati on with diet and exercise.- Have encouraged pt to stay active at least x4 days a week totaling at least x40min/brianne e if able to tolerate.- Have also advised portion control, increased consumptio n of fruits and vegetables with each meal: at least 4-5 servings a day. Limited meat consumptio n (lean meat over red meat). Decreased carbohydra te consumptio n and Increased consumptio n of food containing natural fiber.- Have educated pt to look at Mediterran mckay diet as example of healthy balanced diet example and provided informatio n.- Have offered nutritioni st consult: pt has accepted- Have provided handouts for life style modificati on and the Mediterran mckay diet.- Have advised about food tracking ly to help set healthy weight goals and stay accountabl e- Have advised pt to stay hydrated and to try and drink x5-7 (12oz glasses of water day) Prediabetes 782926837 R7 3.03 A1C: 5.7- Will start Mounjaro 1x week injections for prediabete s and morbid obesity and will titrate up.- Will check A1c in 4 months- Advise 150 min of exercise a week- will send to dietitian Essential hypertension 79845052 I10 140/80, 135/80; has been elevated consistent ly over the last few visits.- Pt reports taking her meds as ordered.- Will increase her losartan to 50mg q Day [id number] MD Sima MENDEZ 14 [address] [facility] [place] [address] 02/18/2023 12:00:32 02/22/2023 09:50:55 Costal chondritis 97768401 M94.0 RT sided rib pain - reproducib le lidocaine 5% patch Bacterial infection caused by Proteus mirabilis 39871206 A49.8 UTI with cultures - proteus mirabilis > 100k colonies tx with Bactrim (susceptib ilities confirmed) failed treatment with macrobidas ymptomatic UACultures [id number] MD Sima Phillip 14 [address] [facility] [address] [place] [address], [place] [address] 07/19/2023 09:35:30 07/22/2023 12:32:03 Urinary symptoms 882232122 R39.9 Differenti als include nephrolith iasis, pyelonephr itis, cholelithi asis , ovarian cyst. Suspected to be either nephrolith iasis vs cholethias is vs gastritis but difficult to differenti ate at this time. Will order RUQ US and urine culture, with CBC/CMP. CBC/CMP to assess for kidney function and infectious cause. Patient receives insurance on july 26 and stated will obtain orders then. ED precaution s for fever and uncontroll able pain and patient agreeable. Dr Wu will send tramadol. Counselled to stay away from NSAID meds as gastritis considered . [id number] MD Sima Spangler [address] [facility] [place] [address] 09/24/2023 16:32:31 10/01/2023 08:33:19 Viral upper respiratory tract infection 477647237 J06.9 Influenza A/B negative, COVID negative, Rapid strep negative. Symptoms consistent with viral URI vs allergic rhinitis.P dari:- Discussed supportive care instructio ns- Push fluids to ensure adequate hydration- To report if no improvemen t or worsening Allergic rhinitis 510922 04 J30.9 Symptoms consistent with viral URI vs allergic rhinitis.P dari:- Flonase nasal spray daily- Cetirizine for symptomati c relief Essential hypertension 26230470 I10 BP slightly elevated, 137/92. Has previous diagnosis of hypertensi on. Currently not on any antihypert ensive medication s.Plan:- Reassess once recovered from viral URI Asthma 975896503 J45.90 9 Has been using albuterol rescue inhaler daily for past month. Due to combinatio n of viral URI, allergic rhinitis, and dust particles from moving old household things.Nandini n:-Reasses s once recovered from viral URI [id number] MD Sima Nguyen 14 IM [address] [facility] [place] [address] 12/31/2023 16:29:16 01/02/2024 09:23:07 Venereal disease screening 782785427 Z11.3 pt would like to be screened for STI, has noticed a bad odor for her discharge clear. No other uninary symptoms. test negative.w ill check nuswab to evaluated for BV as well. Vaginal odor 908748763 N 89.8 vaginal odor for over a week.No urinary symptomsDD X: BV, physiologi klarissa discharge, STIwill check nuswab ad STI evaluation Obesity 325422664 E66.9 [id number] MD Sima Spangler 14 IM [address] [facility] [place] [address] 02/13/2024 16:41:55 02/25/2024 14:00:38 Pruritic disorder of skin 9092919094 L29.9 hydroxyzin e hcl 25 mg po BID for pruritis widespread without rash, without hiveshas allergies to cat, dander, grass, ragweed, pollenrefr ain from hot showersmoi sturize skineuceri n hydroxyzin e hcl 25 mg po bid Environmental allergy 42 0727472 T78.49XA takes zyrtec nearly every day- previously confirmed allergies to cat dander, grass, ragweed, pollen, dust mites, moldallerg ies have never caused anaphylaxi s - does not require epipen- allergy reaction is more itching and scratchy eyes - start montelukas t 10 mg po qd- start fluticason e nasal [id number] MD Sima MENDEZ 14 IM [address] [facility] [place] [address] 07/30/2024 16:36:36 08/03/2024 15:41:17 Essential hypertension 14474707 I10 Will start losartan 25 mg today and may need to be titrated up to 50 mg.Will follow up in 1 week. Viral syndrome 436474549 B34.9 Fevers, congestion , runny nose is likely viral in the setting of treated allergic rhinitis (unlikely rhinitis flare As she does take flonase and montelukas t + zyrtec.Con tinue supportive care. [id number] MD Sima Aguero 14 IM [address] [facility] [address] [place] [address] 04/09/2025 09:57:46 04/15/2025 11:01:22 Colon cancer screening declined 0270430347 9109 Z53.20 0189490396 On MA prompting. f/u w/ PCP Positive s creening for depression on PHQ-9 (Patient Health Questionnaire 9) 3697207651 65083 Z13.31 2896596526 score = 22. uncontroll ed. Recent SI.Managed and establish with psychiatry .Plan:Cont inue psychiatry management .Continue Psychology .Patient is strongly advised to adhere to Rx as prescribed . Obese class III 33486476 5 E66.813 6919472466 BMI >40Recomme nd continued lifestyle modificati ons & exercise >150mins/w k Environmental allergy 42 8587849 Z91.09 855505 Chronic. Pt expressing severe mental health and social impact secondary to her history of allergies. Patient requesting referral to psychology tech. Plan:Refer ral to psychology tech. f/u w/ PCP History of attempted suicide 368263937 Z91.51 737588 See assessment and plan of positive PHQmanaged by Psychiatry . [id number] MD Palak Montaño (Adult Med) [address] [place] [address] 07/15/2025 09:53:10 07/21/2025 15:13:13 Adult health examination 134404626 Z00.01 Encouraged routine SYSTEM ADMIN, vision, dental exams, well balanced diet. Essential hypertension 91429974 I10 currently on beta akbar, will increase dose Morbid obesity 047690147 E66.01 advised low fat, low cholestero l diet, regular exercise and weight reduction. History of migraine 1614 03608 Z86.69 9430700 pt unable to take triptan due to cardiac concerns and does not tolerate when she took in pastwill try to getincreas e propranolo l and will try to get nurtec covered Benign daily plasm of soft tissue 30253996 D22.9 99407360 various scattered nevi, referral to derm for full body scan Environmental allergy 42 5934785 Z91.09 587085 will order allergy testing, may need new referral to allergists isamar Torre in past History of anxiety state 859491585 Z86.59 [id number] pt willing to see psychiatry for med mgmt Asthma 563893371 J45.90 9 dwp prn albuterol usereviewe d AAP [id number] MD Palak Montaño (Adult Med) [address] [place] [address] 08/11/2025 10:27:55 08/23/2025 10:43:22 Tuberculosis screening 132898465 Z11.1 [id number] MD Palak Montaño (Adult Med) [address] [place] [address] 08/26/2025 09:39:04 08/30/2025 18:05:10 Administration of influenza vaccine 51002715 Z23 Essential hypertension 79210764 I10 currently on beta akbar,Re check okaycontin ue current medication Morbid obesity 273594289 E66.01 advised low fat, low cholestero l diet, regular exercise and weight reduction. History of migraine 1614 23181 Z86.69 6933182 pt unable to take triptan due to cardiac concerns and does not tolerate when she took in pastwill try to getincreas e propranolo l and will try to get nurtec covered Environmental allergy 42 6397932 Z91.09 202230 will order allergy testing, may need new referral to allergists aw Sharif Torre in past History of anxiety state 747833638 Z86.59 [id number] pt willing to see psychiatry for med mgmthas npt apt scheduled Asthma 495118737 J45.90 9 dwp prn albuterol usereviewe d AAP Health Concerns Section Related Observation LastModified by Organization Detai ls LastModified Time None Recorded Concern Status LastModified by Organization Details LastModified Time None Recorded Advance Directives Directive N: Payers Insurance Date Sequence Insurance Name Policy Number Policy Gallardo Covered Member ID Gallardo Member ID Guarantor Name 02/08/2023 1 [employer] - OPEN ACCESS II (O) [id number] Nichelle Vick [id number] Nichelle Vick 04/26/2025 1 [facility] ([facility]) [id number] Nichelle Vick [id number] Nichelle Vick 02/13/2024 SLIDING FEE SCHEDULE - DISCOUNT Nichelle Vick 02/13/2024 2 [facility]/25/2025 1 [facility] (MEDICAID HMO) [id number] Nichelle Vick [id number] Nichelle Vick 2025 1 [place] Nichelle Vick [id number] Nichelle Vick 04/06/2025 1 [employer] [employer] - OPEN ACCESS II (PPO) [id number] Nichelle Vick [id number] Nichelle Vick 07/19/2023 1 [facility] ([facility]) [id number] Nichelle Vick [id number] Nichelle Vick Notes Date Note Type Note Provider Name and Address Organization Details Recorded Time 07/30/2024 text/html ROS as noted in the HPI 48F who presents w/ PMHx allergic rhinitis, asthma, anxiety, elevated BMI, HTN presents to discuss cough, drainage, subjective fever. She reports seasonal allergies since she was a teenager. It's generally well controlled, during the seasons will have occasional flares was taking shots years ago; pollen (1997). She was always taking some type of anti histamine (erika, claritin D, singulair). Pt takes (flonase/zyrtec) discussed mediation usage and ideal period of treatment before saying that she failed flonase. HTNRubi was prescribed a pril in the past and had ACEi cough and so discontinued.Was switched to sartan when she decided she wanted to manage lifestyle modifications and weight loss. She agrees that her BP is elevated today and would like to start therapy. Pt denies any fever, chills, night sweats, changes in vision, cough, dysphagia, CP, palpitations, SOB, CVA tenderness, Abd discomfort, n/v/d/c, changes in urination frequency/dysuria, fatigue. JASMINE MCDANIEL MD Attn: Accounting,[address] [facility], [place], [address], [facility] [place] [facility] 07/30/2024 17:56:22 04/09/2025 text/html 49 F post hospital f/u from recent SI Admitted [facility] 04/03. feels better since d/c.BP high 165 at her [facility] appointment. wnl today.States she feels psych issues was from medications being changed. Said had a delay and a few days of meds.Saw psychiatrist yesterday.Current Auvelity 45mg, Alprazolam 1mg taking 2x day (not as Rx'd).Denies SI or HI.Therapist later today.Psychiatrist next wk for f/u Hasn't had allergy testing for 25yrs. Was on zyrtec and singular has helped. States chronic allergies makes it hard to socialize. Patient additionally review of systems requesting to talk about migraines. No h/a at this time. Shelby Braga MD Attn: Accounting,[address] [facility], [place], [address], [facility] [place] [facility] [place] 04/15/2025 09:18:38 07/15/2025 text/html here to est care with new pcppt c/o migraines. would like meds. started about 7 years ago. has tried sumatriptan and other meds but did not help.pt would like allergy testing- states she gets sick a lot. used to get allergy shots from Dr Jack Joradn.needs new psych- used to see dmitry carty- Does not taken mcneil.wants derm for moles on chest- states 1 mole has grown and found new moles Antoinette Amaya APN, [employer] Attn: Accounting,[address] [facility], [place], [address], [place] [facility] 07/20/2025 14:34:59 08/26/2025 text/html Patient here today for follow-upNo complaints today, patient would like to try to get [facility] approved HX:pt c/o migraines. would like meds. started about 7 years ago. has tried sumatriptan and other meds but did not help.pt would like allergy testing- states she gets sick a lot. used to get allergy shots from Dr Jack Jordan.needs new psych- used to see dmitry carty- Does not taken mcneil.wants derm for moles on chest- states 1 mole has grown and found new moles Antoinette Amaya APN, [employer] Attn: Accounting,[address] [facility], [place], [address], [place] [facility] 08/26/2025 10:30:55 OBGyn Episode Ob Episode Information Episode Created Date Number of Fetuses Patient Bloodtype Patient rh Status Prepregnancy Weight lbs Domestic Partner Domestic Partner Phone Father Name Lunch Cook Status 07/18/20 21 1 CLOSED Fetus Data First Name Last Name Admitted to NICU Weight (g) Sex Living Outcome Pediatric Complications Fetus ID Race Codes Race Delivery Type 3770.25 6704 M Full Term [id number] Vaginal Masood Calculation Initial Masood Date Initial Exam Date Initial Exam Provider Initial Ultrasound Date Last Menstrual Period Date Ultra Sound Weeks Gestation 0 Eighteen To Twenty Week Masood Update Ultra Sound Date Fundal Height At Umbil Quickening Date Ultra Sound Latest Weeks Gestation Final Masood Confirmed By Final Masood Confirmed Date Final Masood Date Ultra Sound Latest Days Gestation 0 0 Menstrual History Last Menstrual Date Menses Monthly On Bcp Conception Prior Menses Frequency Hcg Plus Date Menarche Onset Age Delivery Information Delivery Date Delivery Type Labor Anesthesia Weeks Gestation Incision Type Labor Labor Length Hrs Delivered By Post Complications Tubal Sterilization Discharge Date Comments 8 Discharge Information Feeding Method Contraceptive Method Maternal HG B and HCT Levels
--- OUTSIDE RECORDS SUMMARY | 2025-09-30 21:15 | XMS_ITS | Clinical Summary ---
Author Organization [facility] Medical Office Building [address] Address [address] [place] [address] Care Team Providers Care Rough Planer Tender Name Role Phone Unknown, Notinfile Primary Care [...] is agreeable to voluntary psychiatric hospitalization Plan: -[facility] consult - Psychiatry consult to restart [...] 01/30/2021 Assessment & Plan (01/31/2021 8:00 PM DEMOLITION EXPERT): Hearing test - call with results Dental caries 01/30/2021 Assessment & Plan (01/31/2021 7:59 PM DEMOLITION EXPERT): Doxycycline for dental infection, follow up with Dentist at the end of the antibiotics Referred otalgia of both ears 01/30/2021 Assessment & Plan (01/31/2021 8:00 PM DEMOLITION EXPERT): Doxycycline for dental infection, follow up with Dentist at the end of the antibiotics Immunizations Immunization Administration Dates Next Due Tdap [...] on file Legal Sex Female 2:48 AM DEMOLITION EXPERT Gender Identity Not on file Sexual Orientation [...] <65 (1 of 2 - PCV) 1996 Breast Cancer Screening-Mammogram 09/25/2024 023 Cervical Cancer Screening 09/25/2024 09/25/2023, 11/2022 Regular Well Visit/Exam 18-64 09/25/2024 09/25/2023 Covid-19 Vaccine ( - season) 2025 09/06/2021, 12/02/2020, 11/11/2020 Influenza Vaccine (#1) 2025 DTaP/Tdap/Td Vaccine (4 - Td or Tdap) 09/12/2032 09/12/2022, 03/01/2016, 08/26/2007 Procedures Procedure Name Priority Date/Time Associated Diagnosis Comments SCREENING MAMMOGRAM BILATERAL W VERITO Schedule Routine, Read Routine (OP Routine) 09/25/2023 12:05 PM CDT Encounter for screening mammogram for malignant neoplasm of breast HIGH RISK HPV DNA DETECTION WITH GENOTYPING Routine 09/25/2023 11:33 AM CDT Screening for malignant neoplasm of cervix from Last 3 Months or Most Recently Relevant to Health Maintenance Results * Screening Mammogram Bilateral W Verito (09/25/2023 12:05 PM CDT) Anatomical Region Laterality Modality Breast Bilateral Mammography Narrative 10/03/2023 5:20 PM DEMOLITION EXPERT BILATERAL DIGITAL MAMMOGRAPHY with tomography The present [...] HPV HR 16 Not Detected Not Detected [facility] Comment:Testing performed by : [facility], [address] [place]., [address] HPV HR 18 Not Detected Not Detected [facility] Comment:Testing performed by : [facility], [address] [place]., [address] HPV HR Non 16/18 Detected(A) Not Detected [facility] Comment: Interpretive Data Nucleic acid amplification for [...] this test have been verified by the [facility] Molecular Infectious Disease laboratory. Correlate with separately reported cytology results, as applicable. Interpretive data last revised 23 Testing performed by: [facility], [address] [place]., [address] Endocervical 09/25/2023 11:3 3 AM CDT 09/26/2023 12:38 PM CDT Narrative [facility] - 09/27/2023 5:23 AM CDT Clinical history and diagnosis->Liquid-based PAP test with high risk HPV test- Z12.4 Number of vials->1 Testing type->Screening Last menstrual period (date if known)->09/15/23 Gay Gonzalez DO LAB BODY FLUIDS AND STO OLS ORDERABLES Final Result [address] [place] [address] from Last 3 Months or Most Recently Relevant to Health Maintenance Insurance [facility] Advance Directives For more information, please contact: [phone] * Full Code (Latest Code Status on File) Date Activated Date Inactivated Comments 04/03/2025 6:31 PM 04/03/2025 11:17 PM Care Teams Rough Planer Tender Relationship Specialty Start Date End Date Unknown, Notinfile PCP - General 06/11/25
--- OUTSIDE RECORDS SUMMARY | 2025-09-30 21:15 | XMS_ITS | Patient Health Record ---
Author Organization [facility] Address [address] [place] [address] Care Team Providers Care Marketing Effectiveness Manager Name Role Phone Martir Michael MD Primary Care Provider Unavailab Dion Reid Unavailable [phone] Kip Whitaker Unavailable [phone] Allergies No Known Allergies Reason For Referral No Information Medications Medication SIG (Take, Route, Frequency, Duration) Notes Start Date End Date Status Escitalopram Oxalate 10 MG Tablet 1 tablet Orally Once a day; Duration: 30 days 06/29/2025 Unknown Escitalopram Oxalate 10 MG Tablet 0.5 tablet Oral Once a day; Duration: 7 days Unknown ALPRAZolam 1 MG Tablet 1 tablet Orally daily; Duration: 30 days As needed 04/27/2025 Unknown Propranolol HCl 10 MG Tablet 1 tablet Orally twice a day; Duration: 90 days 04/22/2025 Unknown Escitalopram Oxalate 5 MG Tablet 1 tablet Orally Once a day; Duration: 14 days 06/29/2025 Unknown Naproxen 500 MG Tablet Oral 04/10/2024 Unknown Pantoprazole Sodium 40 MG Tablet Delayed Release Oral 04/10/2024 Unknown BLISOVI FE 1 mg-20 mcg (21)/75 mg (7) Tablet Oral *Reorder from [employer] for eRx and Interaction Alerts* 04/10/2024 Unknown hydrOXYzine HCl 25 MG Tablet Oral 04/10/2024 Unknown Montelukast Sodium 10 MG Tablet Oral 04/10/2024 Unknown Auvelity 45-105 MG Tablet Extended Release 1 tablet Orally twice a day; Duration: 90 days Unknown ProAir HFA 108 (90 Base) MCG/ACT Aerosol Solution Inhalation 04/10/2024 Unknown Social History Tobacco Use: Social History Observation Description Date Details (start date - stop date) Current some da y smoker NA - NA Sex Assigned At : Social History Observation Description Sex Assigned At Female Social History Tobacco Use: Social Info Question Answer Notes Tobacco Control (Standard) Tobacco use: Current some day smoker Additional Details Category Social Info Options Details Migrated Social History Migrated Social History Alcohol Intake: Occasional 03/06/2024,Tobacco Years: Patient refused 03/06/2024 Problems Problem Type SNOMED Code ICD Code Onset Dates Problem Status W/U Status Risk Notes Problem Mild recurrent major depression (48750087) Major depressive disorder, recurrent, mild (F33.0) Active confirmed Problem Moderate recurrent major depression (29477345) Major depressive disorder, recurrent, moderate (F33.1) Active confirmed Problem Generalized anxiety disorder (44796353) Generalized anxiety disorder (F41.1) Active confirmed Problem Panic disorder (120701635) Panic disorder [episodic paroxysmal anxiety] without agoraphobia (F41.0) Active confirmed Vital Signs Heart Rate 94 /min 04/22/2025 Height-cm 162.56 cm 04/22/2025 Blood pressure diastolic 86 mm Hg 04/22/2025 Weight-kg 107.77 kg 04/22/2025 Height 64.00 in 04/22/2025 Blood pressure systolic 125 mm Hg 04/22/2025 Weight 237.6 lbs 04/22/2025 BMI 40.78 kg/m2 04/22/2025 Encounters Encounter Location Date Provider Diagnosis [facility] [address] [address] 03/04/2025 Dion Pendleton Generalized anxiety disorder F41.1 ; Panic disorder [episodic paroxysmal anxiety] without agoraphobia F41.0 ; Major depressive disorder, recurrent, mild F33.0 ; Encounter for screening for depression Z13.31 and Encounter for screening for cardiovascular disorders Z13.6 [facility] [address] [address] 04/01/2025 Dion Pendleton Generalized anxiety disorder F41.1 ; Panic disorder [episodic paroxysmal anxiety] without agoraphobia F41.0 ; Major depressive disorder, recurrent, mild F33.0 ; Encounter for screening for depression Z13.31 and Encounter for screening for cardiovascular disorders Z13.6 [facility] [address] [place] [address] 04/08/2025 Dion Whitea Encounter for screen ing for depression Z13.31 ; Encounter for screening for cardiovascular disorders Z13.6 ; Dietary counseling and surveillance Z71.3 ; Nicotine use Z72.0 ; Generalized anxiety disorder F41.1 ; Panic disorder [episodic paroxysmal anxiety] without agoraphobia F41.0 and Major depressive disorder, recurrent, mild F33.0 [facility] [address] [place] [address] 04/22/2025 Dion Pendleton Major depressive disorder, recurrent, mild F33.0 ; Nicotine use Z72.0 ; Encounter for screening for depression Z13.31 ; Encounter for screening for cardiovascular disorders Z13.6 ; Dietary counseling and surveillance Z71.3 ; Generalized anxiety disorder F41.1 and Panic disorder [episodic paroxysmal anxiety] without agoraphobia F41.0 [facility] [address] [place] [address] 12/22/2024 Dion Pendleton Panic disorder [episodic paroxysmal anxiety] without agoraphobia F41.0 [facility] [address] [place] [address] 03/11/2025 [facility], [facility] [address] [place] [address] 07/07/2025 [facility] [address] [place] [address] 03/22/2025 Dion Pendleton [facility], [facility] [address] [place] [address] 03/30/2025 Dion Pendleton Major depressive disorder, recurrent, mild F33.0 [facility], [facility] [address] [place] [address] 03/31/2025 Dion Pendleton [facility], [facility] [address] [place] [address] 04/20/2025 Dion Pendleton [facility], [facility] [address] [place] [address] 06/24/2025 [facility], [facility] [address] [place] [address] 06/24/2025 Dion Pendleton [facility], [facility] [address] [place] [address] 06/28/2025 Dion Pendleton Major depressive disorder, recurrent, moderate F33.1 [facility] [address] [place] [address] 06/29/2025 Dion Pendleton [facility], [facility] [address] [place] [address] 06/30/2025 Dion Pendleton [facility], [facility] [address] [place] [address] 06/30/2025 Dion Pendleton [facility], [facility] [address] [place] [address] 07/01/2025 Dion Pendleton Assessments Encounter Date Diagnosis (ICD Code) Assessment Notes Treatment Notes Treatment Clinical Notes Section Notes 06/28/2025 Major depressive disorder, recurrent, moderate (ICD-10 - F33.1) 04/22/2025 Major depressive disorder, recurrent, mild (ICD-10 - F33.0) 03/04/2025 Generalized anxiety disorder (ICD-10 - F41.1) 04/08/2025 Encounter for screening for depression (ICD-10 - Z13.31) 04/01/2025 Generalized anxiety disorder (ICD-10 - F41.1) 03/30/2025 Major depressive disorder, recurrent, mild (ICD-10 - F33.0) 12/22/2024 Panic disorder [episodic paroxysmal anxiety] without agoraphobia (ICD-10 - F41.0) 04/08/2025 Encounter for screening for cardiovascular disorders (ICD-10 - Z13.6) 03/04/2025 Panic disorder [episodic paroxysmal anxiety] without agoraphobia (ICD-10 - F41.0) alprazolam 1mg tid prn 04/22/2025 Encounter for screening for depression (ICD-10 - Z13.31) 04/22/2025 Nicotine use (ICD-10 - Z72.0) 04/01/2025 Panic disorder [episodic paroxysmal anxiety] without agoraphobia (ICD-10 - F41.0) alprazolam 1mg tid prn 04/22/2025 Encounter for screening for cardiovascular disorders (ICD-10 - Z13.6) 03/04/2025 Major depressive disorder, recurrent, mild (ICD-10 - F33.0) 04/08/2025 Dietary counseling and surveillance (ICD-10 - Z71.3) 04/01/2025 Major depressive disorder, recurrent, mild (ICD-10 - F33.0) 04/01/2025 Encounter for screening for depression (ICD-10 - Z13.31) 04/08/2025 Nicotine use (ICD-10 - Z72.0) 03/04/2025 Encounter for screening for depression (ICD-10 - Z13.31) 04/22/2025 Dietary counseling and surveillance (ICD-10 - Z71.3) 04/22/2025 Generalized anxiety disorder (ICD-10 - F41.1) 03/04/2025 Encounter for screening for cardiovascular disorders (ICD-10 - Z13.6) 04/08/2025 Generalized anxiety disorder (ICD-10 - F41.1) 04/01/2025 Encounter for screening for cardiovascular disorders (ICD-10 - Z13.6) 04/08/2025 Panic disorder [episodic paroxysmal anxiety] without agoraphobia (ICD-10 - F41.0) avoid benzo 04/22/2025 Panic disorder [episodic paroxysmal anxiety] without agoraphobia (ICD-10 - F41.0) avoid benzo 04/08/2025 Major depressive disorder, recurrent, mild (ICD-10 - F33.0) 03/04/2025 Other Nichelle Vick, female patient with history of depression, anxiety, and panic attacks since her son's in 2013, presenting with persistent depressive symptoms and anxiety despite current medication regimen. Major Depressive Disorder Assessment: Patient reports ongoing depressive symptoms despite current treatment with escitalopram 20 mg and bupropion XL 150 mg. Symptoms include anhedonia, low energy, and difficulty with activities of daily living such as showering and brushing teeth. Patient has history of trials with Effexor and Paxil in the past. Current regimen appears to be partially effective but not achieving full remission. Plan: - Decrease escitalopram to 10 mg PO daily - Discontinue bupropion XL 150 mg - Start Auvelity (dextromethorphan/ bupropion) 45 mg/105 mg: - One tablet PO daily for 3 days, then increase to one tablet PO twice daily (morning and afternoon) - Informed patient of potential side effects: may feel goofy or off for first 1-2 weeks - Follow up in one month to assess efficacy and tolerability of new medication regimen Generalized Anxiety Disorder with Panic Attacks Assessment: Patient reports ongoing anxiety and panic attacks. Current treatment includes alprazolam 1 mg as needed. Patient experiences physical symptoms during attacks including teeth grinding (which has led to dental issues), sweating, and visual disturbances. Patient utilizes coping strategies such as running hands under cold water, using mantras, and praying. Plan: - Continue alprazolam 1 mg PO as needed for panic attacks - Encourage continuation of current coping strategies - Consider dental referral for evaluation of mouth guard for bruxism Grief Assessment: Patient reports ongoing counseling since the of her son in 2013. Currently seeing Jean Kan at least once monthly. Plan: - Continue current counseling with Jean Kan the note is transcribed using speech recognition software. It is a reflection of a visit with the patient. It might have some inaccuracy, including medication names and transcribing errors, though efforts have been made to correct them. 04/01/2025 Other Nichelle Vick, female patient with history of depression and anxiety, presenting with severe exacerbation of symptoms including suicidal ideation, panic attacks, and difficulty functioning. Major Depressive Disorder with Anxiety Assessment: Patient reports significant worsening of depressive and anxiety symptoms over the past few days, possibly related to recent discontinuation of Wellbutrin. Symptoms include persistent anxiety, depressed mood, suicidal ideation (most recently on Saturday), difficulty sleeping, crying spells, panic attacks with somatic symptoms, and irritability. Patient notes this is the worst she has felt in 10 years, since the of her son. Contributing factors may include upcoming Mother's Day, given the loss of her mother and son. Patient started Auvelity 3 days ago and reports feeling slightly better since initiation. Plan: - Continue Auvelity: - Current dosage: Once daily for first 3 days - Increase to twice daily starting tomorrow - Monitor for improvement in depressive and anxiety symptoms - Advised patient on suicide prevention strategies: - Encouraged reaching out to friends for support during crisis - Reviewed coping techniques: prayer, sleep, journaling, walking dog - Discussed potential for intermittent FMLA for job protection - Follow-up appointment scheduled in approximately 5 weeks - Patient to schedule follow-up online Panic Disorder Assessment: Patient reports experiencing severe panic attacks, including an episode while driving that led to suicidal ideation. Friends have been assisting with grounding techniques during these episodes. Patient stayed home from work yesterday due to severity of symptoms, noting that panic attacks can involve loud screaming. Plan: - Continue prescribed Xanax as needed for panic attacks - Reinforce use of coping strategies taught by friends: - Breathing exercises - Grounding techniques (looking at and touching objects) - Provided work absence note - Discussed potential for intermittent FMLA to protect job status during symptomatic periods the note is transcribed using speech recognition software. It is a reflection of a visit with the patient. It might have some inaccuracy, including medication names and transcribing errors, though efforts have been made to correct them. 04/08/2025 Other Nichelle Vick, female patient with history of depression and anxiety, presenting after recent suicide attempt involving medication overdose and superficial self-harm. Suicide attempt and self-harm Assessment: Patient reports recent suicide attempt involving overdose of 48 Nyquil tablets, hydroxyzine, and Xanax, followed by superficial self-harm. This occurred after being fired from her job on Saturday, which appears to have been a significant stressor. Patient was hospitalized Saturday night, then admitted to [facility] (likely a psychiatric facility) from Saturday to Saturday. No medication changes were made during hospitalization. Patient denies current suicidal ideation and reports implementing safety measures, including writing reminders to reach out for help and utilizing crisis resources. Plan: - Provided crisis resources: 988 suicide hotline number and [employer] website - Encouraged patient to reach out to support system when in crisis - Follow up in one week to reassess suicide risk and treatment efficacy Major Depressive Disorder Assessment: Patient reports current mood at 5 out of 10, indicating persistent depressive symptoms. Recent stressors include job loss and pet illness. Patient describes feeling exhausted, having decreased appetite, and experiencing sleep disturbances. Currently taking escitalopram, bupropion, and recently started Abilify. Auvelity (bupropion/dextrom ethorphan combination) was prescribed but not administered during recent hospitalization. Plan: - Continue escitalopram (dose not specified) - Continue bupropion (dose not specified) - Continue Abilify (dose not specified) - Trial Auvelity 45mg (frequency not specified) for one week - Follow up in one week to assess efficacy of current medication regimen and consider potential adjustments Generalized Anxiety Disorder Assessment: Patient reports increased anxiety, particularly following recent job loss and medication changes. Has been using Xanax more frequently to manage symptoms. Also notes feeling restless since starting Abilify. Plan: - Continue Xanax as needed for anxiety (dose and frequency not specified) - Monitor for side effects of Abilify, particularly restlessness - Encourage continuation of small, manageable goals to reduce anxiety - Follow up in one week to reassess anxiety symptoms and medication efficacy the note is transcribed using speech recognition software. It is a reflection of a visit with the patient. It might have some inaccuracy, including medication names and transcribing errors, though efforts have been made to correct them. 04/22/2025 Michelle Vick presents with ongoing anxiety symptoms, including physical manifestations, despite recent medication adjustments and a hospitalization for suicidal ideation. Anxiety Disorder with Predominant Physical Symptoms Assessment: Patient reports persistent anxiety symptoms, particularly physical manifestations such as shakiness and feeling physically tight and nervous. These symptoms have worsened since February, coinciding with the initiation of Auvelity (bupropion + dextromethorphan) treatment. The patient is currently taking Auvelity twice daily, escitalopram 10 mg daily, and approximately 2 Xanax per day for symptom management. Despite this regimen, she continues to experience significant physical anxiety symptoms, including difficulty getting out of bed due to anxiety. The emotional component of anxiety appears to be less prominent than the physical symptoms. Recent addition of escitalopram may be contributing to increased anxiety. Plan: - Start propranolol 10 mg PO BID for physical anxiety symptoms - Taper and discontinue escitalopram: - Decrease to 5 mg daily for 1 week, then discontinue - Continue Auvelity twice daily - Attempt to obtain 90-day supply of Auvelity due to impending loss of insurance - Provide samples of escitalopram for potential issues during medication transition - Follow up as needed, considering patient's insurance situation Major Depressive Disorder Assessment: Patient reports improvement in depressive symptoms with current medication regimen, particularly since starting Auvelity in February. However, there is a history of recent suicidal ideation requiring hospitalization, which occurred shortly after initiating Auvelity treatment. The patient currently denies any thoughts of self-harm and attributes the previous incident to medication changes. Plan: - Continue Auvelity twice daily for depression management - Monitor for any recurrence of suicidal ideation - Patient instructed to call if experiencing any remote thoughts of self-harm Insomnia Assessment: Patient reports intermittent difficulty sleeping, which may be related to anxiety symptoms or current medication regimen. Plan: - Monitor sleep patterns with medication adjustments Migraine Assessment: Patient reports a recent migraine episode that resulted in cancellation of a previous appointment and spending most of the day in bed. Plan: - No specific interventions discussed for migraine management the note is transcribed using speech recognition software. It is a reflection of a visit with the patient. It might have some inaccuracy, including medication names and transcribing errors, though efforts have been made to correct them. Plan Of Treatment No Information Medical (General) History Medical History History ICD Code Problems: Generalized anxiety disorder Moderate recurrent major depression Panic disorder , Imported from Highlights: On April 02, 2025, the patient visited the emergency department at [facility], where they were seen by Dr. Mandi Akhtar. The patient presented with unspecified depression and had attempted suicide. This was also accompanied by a toxic effect due to intentional self-harm with acetaminophen. Following the emergency visit, the patient had a hospital encounter on April 03, 2025. The records do not specify the physician who attended to the patient during this hospital encounter. Surgical History Surgery Date(Month/Year) Other 03/04/2016
--- OUTSIDE RECORDS SUMMARY | 2025-09-30 21:15 | XMS_ITS | Clinical Summary ---
Author Organization [facility] Address [address] [place] [address] Care Team Providers Care Digital Forensic Examiner Name Role Phone Thierno Shabazz MD Primary Care Provider [phone] Source Comments [facility],non-owned Affiliates and Associated Physician Practices is amultiple site organization consisting of ambulatory clinics and hospital sitesin [place], [place], [place] and [place]. This disclosure is being madepursuant to the Care Everywhere program and may not contain all information available regarding this patient. Last updated 18.[facility] Allergies No known active allergies Medications * [...] of 3 - 19+ 3-dose series) 1996 DEPRESSION SCREENING 11/25/2024 COVID-19 VACCINE (1 - 2023-2 5 season) 2025 INFLUENZA VACCINE (#1) 2025 ZOSTER VACCINE (1 [...] age to complete this topic Care Teams Digital Forensic Examiner Relationship Specialty Start Date End Date Thierno Shabazz MD [address] [place] [address] PCP - General Family Medicine 05/14/17
[2025-10-01 20:34] LABS: Trichomonas Vag PCR NOT DETECTED (NOT DETECTE)
== END 2025-09-30 19:20 | disposition home or self-care (01) ==
PROVIDERS: Emergency Provider Nurse Practitioner; PCP Nurse Practitioner Family
DX: Z11.3 Encounter for screening for infections with a predominantly sexual mode of transmission (principal); Z87.891 Personal history of nicotine dependence
CPT/HCPCS: 87491; 87591; 87661; 99213; G0463; J0696; J2003